=== PATIENT | male | born 1955 | race Caucasian/White ===

== ENCOUNTER 2020-05-05 11:07 | Outpatient (REF) | payer MEDICARE, SELFPAY ==
[2020-05-05 11:58] LABS: MANUAL DIFF FLAG NO
[2020-05-05 12:02] LABS: Basophils Absolute Auto 0.1 X10*3/uL (0.0-0.2); Eosinophils Absolute Auto 0.2 X10*3/uL (0.0-0.4); Eosinophils Percent Auto 2.6 % (0-4); Hematocrit 42.5 % (42-52); Hemoglobin 14.1 g/dl (14.0-18.0); Imm Gran Pct Auto 1.6 % (0.0-0.4); Lymphocytes Absolute Auto 1.3 X10*3/uL (1.2-4.9); Lymphocytes Percent Auto 20.9 % (20-40); Mean Corpuscular HGB Conc 33.2 g/dl (31.0-36.0); Mean Corpuscular Hemoglobin 30.5 pg (27.0-33.0); Mean Platelet Volume 9.7 fL (9.4-12.4); Monocytes Absolute Auto 0.6 X10*3/uL (0.1-1.2); Monocytes Percent Auto 10.3 % (2-11); Neutrophils Percent Auto 63.6 % (45-73); Platelet Count 164 X10*3/uL (160-400); Red Blood Count 4.62 X10*6/uL (4.60-5.80); Red Cell Distribution Width 14.3 % (11.0-16.0); White Blood Count 6.2 X10*3/uL (4.8-10.8)
[2020-05-05 12:28] LABS: Alanine Aminotransferase 22 U/L (0-40); Albumin Level 4.6 g/dL (3.5-5.0); Alkaline Phosphatase 63 U/L (39-117); Anion Gap 14 (12-20); Aspartate Amino Transferase 19 U/L (5-37); B Type Natriuretic Peptide 48 pg/mL (<100); Bilirubin Total 0.5 mg/dL (0.0-1.0); Blood Urea Nitrogen 42 mg/dL (9-16); Calcium 9.4 mg/dL (8.4-10.2); Carbon Dioxide 25 mmol/L (22-29); Chloride 105 mmol/L (96-108); Cholesterol 165 mg/dL; Estimated Glomerular Filt Rate 53; Glucose Fasting 124 mg/dL (60-99); HDL Cholesterol 24 mg/dL; LDL Cholesterol Calculated 96 mg/dl; Potassium 4.6 mmol/l (3.3-5.1); Sodium 139 mmol/L (135-145); Triglycerides 225 mg/dL
[2020-05-05 12:57] LABS: Folate 7.1 ng/mL (> or = 4.0); Vitamin B12 583 pg/mL (200-900)
[2020-05-05 12:58] LABS: Glucose Urine UA NEG (NEG); Leukocyte Esterase Urine NEG (NEG); Nitrite Urine NEG (NEG); PH 5.5 (5.0-8.0); Specific Gravity - Urine 1.025 (1.005-1.025); Urine Blood NEG (NEG); Urine Ketones NEG (NEG); Urine Protein NEG (NEG-TRACE)
[2020-05-05 13:02] LABS: Appearance Urine CLEAR; Color Urine YELLOW
[2020-05-05 13:19] LABS: Creatinine Urine 92.33 mg/dL
[2020-05-05 13:22] LABS: Estimated Average Glucose 108 mg/dL; Hemoglobin A1c % 5.4 %
== END 2020-05-05 11:08 | disposition home or self-care (01) ==
LOC: HO.LAB 11:07
PROVIDERS: Absent Provider Nurse Practitioner Gerontology; PCP Internal Medicine; Visit Provider Internal Medicine
DX: E11.22 Type 2 diabetes mellitus with diabetic chronic kidney disease (principal); I12.9 Hypertensive chronic kidney disease with stage 1 through stage 4 chronic kidney disease, or unspecified chronic kidney disease; N18.30 Chronic kidney disease, stage 3 unspecified; E78.2 Mixed hyperlipidemia; E83.52 Hypercalcemia; I50.9 Heart failure, unspecified; G61.81 Chronic inflammatory demyelinating polyneuritis; G62.9 Polyneuropathy, unspecified
CPT/HCPCS: 36415; 80053; 80061; 81003; 82043; 82607; 82746; 83036; 83880; 85025

== ENCOUNTER → 2020-05-09 11:17 | Outpatient (BNVA) | payer MEDICARE, SELFPAY | PROVIDERS: PCP Internal Medicine; Visit Provider Nurse Practitioner Gerontology | DX: E11.22 Type 2 diabetes mellitus with diabetic chronic kidney disease (principal); I12.9 Hypertensive chronic kidney disease with stage 1 through stage 4 chronic kidney disease, or unspecified chronic kidney disease; N18.30 Chronic kidney disease, stage 3 unspecified; E11.42 Type 2 diabetes mellitus with diabetic polyneuropathy; E78.1 Pure hyperglyceridemia | CPT/HCPCS: 82947; 99212 ==

== ENCOUNTER 2020-08-11 11:42 | Outpatient (REF) | payer MEDICARE, SELFPAY ==
[2020-08-11 12:38] LABS: MANUAL DIFF FLAG NO
[2020-08-11 12:46] LABS: Basophils Absolute Auto 0.1 X10*3/uL (0.0-0.2); Basophils Percent Auto 1.1 % (0-2); Eosinophils Absolute Auto 0.2 X10*3/uL (0.0-0.4); Eosinophils Percent Auto 2.7 % (0-4); Hematocrit 40.9 % (42-52); Hemoglobin 13.7 g/dl (14.0-18.0); Imm Gran Abs Auto 0.09 X10*3/uL (0.00-0.03); Imm Gran Pct Auto 1.4 % (0.0-0.4); Lymphocytes Absolute Auto 1.5 X10*3/uL (1.2-4.9); Lymphocytes Percent Auto 22.6 % (20-40); Mean Corpuscular HGB Conc 33.5 g/dl (31.0-36.0); Mean Corpuscular Hemoglobin 30.4 pg (27.0-33.0); Mean Corpuscular Volume 90.7 fL (80-98); Mean Platelet Volume 10.3 fL (9.4-12.4); Monocytes Absolute Auto 0.7 X10*3/uL (0.1-1.2); Neutrophils Absolute Auto 4.1 X10*3/uL (2.0-8.3); Neutrophils Percent Auto 61.2 % (45-73); Platelet Count 179 X10*3/uL (160-400); Red Blood Count 4.51 X10*6/uL (4.60-5.80); Red Cell Distribution Width 14.3 % (11.0-16.0); White Blood Count 6.6 X10*3/uL (4.8-10.8)
[2020-08-11 13:05] LABS: Glucose Urine UA NEG (NEG); Leukocyte Esterase Urine NEG (NEG); Nitrite Urine NEG (NEG); PH 5.5 (5.0-8.0); Specific Gravity - Urine 1.025 (1.005-1.025); Urine Blood NEG (NEG); Urine Ketones NEG (NEG); Urine Protein NEG (NEG-TRACE)
[2020-08-11 13:12] LABS: B Type Natriuretic Peptide 48 pg/mL (<100)
[2020-08-11 13:14] LABS: Appearance Urine CLEAR; Color Urine YELLOW
[2020-08-11 13:21] LABS: Alanine Aminotransferase 24 U/L (0-40); Albumin Level 4.6 g/dL (3.5-5.0); Alkaline Phosphatase 66 U/L (39-117); Anion Gap 12 (12-20); Aspartate Amino Transferase 22 U/L (5-37); Bilirubin Total 0.5 mg/dL (0.0-1.0); Blood Urea Nitrogen 46 mg/dL (9-16); Calcium 9.7 mg/dL (8.4-10.2); Carbon Dioxide 28 mmol/L (22-29); Chloride 103 mmol/L (96-108); Cholesterol 169 mg/dL; Estimated Glomerular Filt Rate 46; Glucose Fasting 105 mg/dL (60-99); HDL Cholesterol 29 mg/dL; LDL Cholesterol Calculated 116 mg/dl; Potassium 4.8 mmol/L (3.3-5.1); Sodium 138 mmol/L (135-145); Total Protein 7.1 g/dL (6.5-8.0); Triglycerides 124 mg/dL
[2020-08-11 13:43] LABS: Folate 6.1 ng/mL (> or = 4.0); Vitamin B12 705 pg/mL (200-900)
[2020-08-11 13:44] LABS: TSH reflex Free T4 2.68 uIU/mL (0.32-4.0)
[2020-08-11 14:02] LABS: Microalbum/Creatinine Ratio Ur 12.5 ug/mg cr
== END 2020-08-11 11:43 | disposition home or self-care (01) ==
LOC: HO.LAB 11:42
PROVIDERS: Absent Provider Nurse Practitioner Gerontology; PCP Internal Medicine; Visit Provider Internal Medicine
DX: E11.22 Type 2 diabetes mellitus with diabetic chronic kidney disease (principal); I13.0 Hypertensive heart and chronic kidney disease with heart failure and stage 1 through stage 4 chronic kidney disease, or unspecified chronic kidney disease; N18.30 Chronic kidney disease, stage 3 unspecified; I50.9 Heart failure, unspecified; G62.9 Polyneuropathy, unspecified; G61.81 Chronic inflammatory demyelinating polyneuritis; E78.2 Mixed hyperlipidemia; E83.52 Hypercalcemia; E66.3 Overweight
CPT/HCPCS: 36415; 80053; 80061; 81003; 82043; 82607; 82746; 83880; 84443; 85025

== ENCOUNTER 2020-11-04 11:18 | Outpatient (REF) | payer MEDICARE, SELFPAY ==
[2020-11-04 12:29] LABS: MANUAL DIFF FLAG NO
[2020-11-04 12:39] LABS: Basophils Absolute Auto 0.1 X10*3/uL (0.0-0.2); Basophils Percent Auto 1.1 % (0-2); Eosinophils Absolute Auto 0.2 X10*3/uL (0.0-0.4); Eosinophils Percent Auto 2.8 % (0-4); Hematocrit 42.1 % (42-52); Imm Gran Abs Auto 0.11 X10*3/uL (0.00-0.03); Imm Gran Pct Auto 1.7 % (0.0-0.4); Lymphocytes Absolute Auto 1.4 X10*3/uL (1.2-4.9); Lymphocytes Percent Auto 21.5 % (20-40); Mean Corpuscular HGB Conc 33.3 g/dl (31.0-36.0); Mean Corpuscular Hemoglobin 30.1 pg (27.0-33.0); Mean Corpuscular Volume 90.5 fL (80-98); Mean Platelet Volume 10.3 fL (9.4-12.4); Monocytes Absolute Auto 0.7 X10*3/uL (0.1-1.2); Monocytes Percent Auto 10.5 % (2-11); Neutrophils Percent Auto 62.4 % (45-73); Platelet Count 177 X10*3/uL (160-400); Red Blood Count 4.65 X10*6/uL (4.60-5.80); Red Cell Distribution Width 14.1 % (11.0-16.0); White Blood Count 6.4 X10*3/uL (4.8-10.8)
[2020-11-04 12:48] LABS: Glucose Urine UA NEG (NEG); Leukocyte Esterase Urine NEG (NEG); Nitrite Urine NEG (NEG); PH 5.5 (5.0-8.0); Specific Gravity - Urine 1.015 (1.005-1.025); Urine Blood NEG (NEG); Urine Ketones NEG (NEG); Urine Protein NEG (NEG-TRACE)
[2020-11-04 12:52] LABS: Appearance Urine CLEAR; Color Urine YELLOW
[2020-11-04 12:59] LABS: Estimated Average Glucose 91 mg/dL; Hemoglobin A1c % 4.8 %
[2020-11-04 13:19] LABS: Alanine Aminotransferase 25 U/L (0-40); Albumin Level 4.7 g/dL (3.5-5.0); Alkaline Phosphatase 51 U/L (39-117); Anion Gap 13 (12-20); Aspartate Amino Transferase 20 U/L (5-37); Bilirubin Total 0.7 mg/dL (0.0-1.0); Blood Urea Nitrogen 63 mg/dL (9-16); Calcium 10.2 mg/dL (8.4-10.2); Carbon Dioxide 25 mmol/L (22-29); Chloride 105 mmol/L (96-108); Cholesterol 151 mg/dL; Estimated Glomerular Filt Rate 49; Glucose Fasting 70 mg/dL (60-99); HDL Cholesterol 30 mg/dL; LDL Cholesterol Calculated 101 mg/dl; Potassium 4.4 mmol/L (3.3-5.1); Sodium 139 mmol/L (135-145); Total Protein 7.1 g/dL (6.5-8.0); Triglycerides 102 mg/dL
[2020-11-04 13:34] LABS: TSH reflex Free T4 2.21 uIU/mL (0.32-4.0); Vitamin D 25-OH Total 28.5 ng/mL (>30)
[2020-11-04 13:46] LABS: Digoxin 0.4 ng/mL (0.8-2.0)
[2020-11-04 13:54] LABS: Creatinine Urine 52.58 mg/dL; Microalbum/Creatinine Ratio Ur 11.4 ug/mg cr
[2020-11-04 13:55] LABS: Folate 7.7 ng/mL (> or = 4.0); Vitamin B12 652 pg/mL (200-900)
== END 2020-11-04 11:19 | disposition home or self-care (01) ==
LOC: HO.LAB 11:18
PROVIDERS: Absent Provider Nurse Practitioner Gerontology; PCP Internal Medicine; Visit Provider Internal Medicine
DX: I13.0 Hypertensive heart and chronic kidney disease with heart failure and stage 1 through stage 4 chronic kidney disease, or unspecified chronic kidney disease (principal); N18.31 Chronic kidney disease, stage 3a; I50.9 Heart failure, unspecified; E11.22 Type 2 diabetes mellitus with diabetic chronic kidney disease; E11.21 Type 2 diabetes mellitus with diabetic nephropathy; E66.3 Overweight; E78.2 Mixed hyperlipidemia; G62.9 Polyneuropathy, unspecified; E55.9 Vitamin D deficiency, unspecified; G61.81 Chronic inflammatory demyelinating polyneuritis; Z79.4 Long term (current) use of insulin
CPT/HCPCS: 36415; 80053; 80061; 80162; 81003; 82043; 82306; 82607; 82746; 83036; 84443; 85025

== ENCOUNTER → 2020-11-10 11:20 | Outpatient (BNVA) | payer MEDICARE, SELFPAY | PROVIDERS: PCP Internal Medicine; Visit Provider Nurse Practitioner Gerontology | DX: E11.649 Type 2 diabetes mellitus with hypoglycemia without coma (principal); E11.42 Type 2 diabetes mellitus with diabetic polyneuropathy; E11.21 Type 2 diabetes mellitus with diabetic nephropathy; E11.22 Type 2 diabetes mellitus with diabetic chronic kidney disease; I12.9 Hypertensive chronic kidney disease with stage 1 through stage 4 chronic kidney disease, or unspecified chronic kidney disease; N18.31 Chronic kidney disease, stage 3a; E66.3 Overweight; E78.5 Hyperlipidemia, unspecified; Z79.4 Long term (current) use of insulin | CPT/HCPCS: 82947; 99212 ==

== ENCOUNTER 2021-02-13 10:42 | Outpatient (REF) | payer MEDICARE, SELFPAY ==
[2021-02-13 11:54] LABS: MANUAL DIFF FLAG NO
[2021-02-13 12:00] LABS: Basophils Percent Auto 0.6 % (0-2); Eosinophils Absolute Auto 0.3 X10*3/uL (0.0-0.4); Eosinophils Percent Auto 4.1 % (0-4); Hemoglobin 14.6 g/dl (14.0-18.0); Imm Gran Abs Auto 0.14 X10*3/uL (0.00-0.03); Lymphocytes Absolute Auto 1.3 X10*3/uL (1.2-4.9); Lymphocytes Percent Auto 18.9 % (20-40); Mean Corpuscular Hemoglobin 30.8 pg (27.0-33.0); Mean Corpuscular Volume 90.7 fL (80-98); Mean Platelet Volume 10.3 fL (9.4-12.4); Monocytes Absolute Auto 0.8 X10*3/uL (0.1-1.2); Neutrophils Absolute Auto 4.4 X10*3/uL (2.0-8.3); Neutrophils Percent Auto 62.4 % (45-73); Platelet Count 174 X10*3/uL (160-400); Red Blood Count 4.74 X10*6/uL (4.60-5.80); Red Cell Distribution Width 14.3 % (11.0-16.0)
[2021-02-13 12:08] LABS: Estimated Average Glucose 91 mg/dL; Hemoglobin A1c % 4.8 %
[2021-02-13 12:21] LABS: Alanine Aminotransferase 28 U/L (0-40); Albumin Level 4.7 g/dL (3.5-5.0); Alkaline Phosphatase 45 U/L (39-117); Anion Gap 12 (12-20); Aspartate Amino Transferase 21 U/L (5-37); Bilirubin Total 0.8 mg/dL (0.0-1.0); Blood Urea Nitrogen 68 mg/dL (9-16); Calcium 10.2 mg/dL (8.4-10.2); Carbon Dioxide 24 mmol/L (22-29); Chloride 106 mmol/L (96-108); Cholesterol 158 mg/dL; Estimated Glomerular Filt Rate 49; Glucose Fasting 90 mg/dL (60-99); HDL Cholesterol 28 mg/dL; LDL Cholesterol Calculated 103 mg/dl; Potassium 4.4 mmol/L (3.3-5.1); Sodium 138 mmol/L (135-145); Total Protein 7.2 g/dL (6.5-8.0); Triglycerides 139 mg/dL
[2021-02-13 12:44] LABS: TSH reflex Free T4 2.27 uIU/mL (0.32-4.0); Vitamin D 25-OH Total 37.1 ng/mL (>30)
[2021-02-13 12:54] LABS: Appearance Urine CLEAR; Color Urine YELLOW; Glucose Urine UA NEG (NEG); Leukocyte Esterase Urine NEG (NEG); Nitrite Urine NEG (NEG); PH 5.5 (5.0-8.0); Urine Blood NEG (NEG); Urine Ketones NEG (NEG); Urine Protein NEG (NEG-TRACE)
[2021-02-13 13:04] LABS: Folate 14.4 ng/mL (> or = 4.0); Vitamin B12 833 pg/mL (200-900)
== END 2021-02-13 10:43 | disposition home or self-care (01) ==
LOC: HO.LAB 10:42
PROVIDERS: PCP Internal Medicine; Visit Provider Internal Medicine
DX: I10 Essential (primary) hypertension (principal); E55.9 Vitamin D deficiency, unspecified; E11.9 Type 2 diabetes mellitus without complications; E78.00 Pure hypercholesterolemia, unspecified; E53.8 Deficiency of other specified B group vitamins; E78.2 Mixed hyperlipidemia
CPT/HCPCS: 36415; 80053; 80061; 81003; 82306; 82607; 82746; 83036; 84443; 85025

== ENCOUNTER 2021-06-09 10:56 | Outpatient (REF) | payer MEDICARE, SELFPAY ==
[2021-06-09 11:21] LABS: MANUAL DIFF FLAG NO
[2021-06-09 12:14] LABS: Basophils Absolute Auto 0.1 X10*3/uL (0.0-0.2); Basophils Percent Auto 0.9 % (0-2); Eosinophils Absolute Auto 0.2 X10*3/uL (0.0-0.4); Eosinophils Percent Auto 3.1 % (0-4); Imm Gran Abs Auto 0.22 X10*3/uL (0.00-0.03); Imm Gran Pct Auto 3.4 % (0.0-0.4); Lymphocytes Absolute Auto 1.1 X10*3/uL (1.2-4.9); Lymphocytes Percent Auto 17.4 % (20-40); Mean Corpuscular HGB Conc 33.3 g/dl (31.0-36.0); Mean Platelet Volume 9.8 fL (9.4-12.4); Monocytes Absolute Auto 0.8 X10*3/uL (0.1-1.2); Monocytes Percent Auto 11.8 % (2-11); Neutrophils Absolute Auto 4.1 x10*3/uL (2.0-8.3); Neutrophils Percent Auto 63.4 % (45-73); Platelet Count 171 X10*3/uL (160-400); Red Blood Count 4.84 X10*6/uL (4.60-5.80); Red Cell Distribution Width 14.5 % (11.0-16.0); White Blood Count 6.5 X10*3/uL (4.8-10.8)
[2021-06-09 12:21] LABS: Estimated Average Glucose 100 mg/dL; Hemoglobin A1c % 5.1 %
[2021-06-09 12:45] LABS: Alanine Aminotransferase 29 U/L (0-40); Albumin Level 4.7 g/dL (3.5-5.0); Alkaline Phosphatase 51 U/L (39-117); Anion Gap 12 (12-20); Aspartate Amino Transferase 20 U/L (5-37); Bilirubin Total 0.6 mg/dL (0.0-1.0); Blood Urea Nitrogen 53 mg/dL (9-16); Calcium 10.1 mg/dL (8.4-10.2); Carbon Dioxide 24 mmol/L (22-29); Chloride 108 mmol/L (96-108); Cholesterol 190 mg/dL; Estimated Glomerular Filt Rate 47; Glucose Fasting 104 mg/dL (60-99); HDL Cholesterol 28 mg/dL; LDL Cholesterol Calculated 117 mg/dl; Potassium 4.8 mmol/L (3.3-5.1); Sodium 139 mmol/L (135-145); Total Protein 7.4 g/dL (6.5-8.0); Triglycerides 226 mg/dL
[2021-06-09 12:51] LABS: Microalbum/Creatinine Ratio Ur 46.8 ug/mg cr
[2021-06-09 12:55] LABS: Prostate Specific Antigen Scr 0.48 ng/mL (<0.05-4.0)
== END 2021-06-09 10:57 | disposition home or self-care (01) ==
LOC: HO.LAB 10:56
PROVIDERS: Nurse Practitioner Family; PCP Internal Medicine; Visit Provider Internal Medicine
DX: I10 Essential (primary) hypertension (principal); E11.22 Type 2 diabetes mellitus with diabetic chronic kidney disease; N18.30 Chronic kidney disease, stage 3 unspecified; E78.2 Mixed hyperlipidemia; E78.1 Pure hyperglyceridemia; E78.00 Pure hypercholesterolemia, unspecified; Z12.5 Encounter for screening for malignant neoplasm of prostate
CPT/HCPCS: 36415; 80053; 80061; 82043; 83036; 84153; 85025

== ENCOUNTER → 2021-06-25 11:23 | Outpatient (BNVA) | payer MEDICARE, SELFPAY | PROVIDERS: PCP Internal Medicine; Visit Provider Nurse Practitioner Gerontology | DX: E11.649 Type 2 diabetes mellitus with hypoglycemia without coma (principal); E11.21 Type 2 diabetes mellitus with diabetic nephropathy; E11.42 Type 2 diabetes mellitus with diabetic polyneuropathy; E11.22 Type 2 diabetes mellitus with diabetic chronic kidney disease; I12.9 Hypertensive chronic kidney disease with stage 1 through stage 4 chronic kidney disease, or unspecified chronic kidney disease; N18.31 Chronic kidney disease, stage 3a; E78.2 Mixed hyperlipidemia; E66.3 Overweight; Z79.4 Long term (current) use of insulin; Z68.25 Body mass index [BMI] 25.0-25.9, adult | CPT/HCPCS: 82947; 99212 ==

== ENCOUNTER 2021-09-03 11:13 | Outpatient (REF) | payer MEDICARE, SELFPAY ==
[2021-09-03 11:44] LABS: MANUAL DIFF FLAG NO
[2021-09-03 12:15] LABS: Basophils Absolute Auto 0.1 X10*3/uL (0.0-0.2); Basophils Percent Auto 0.9 % (0-2); Eosinophils Absolute Auto 0.2 X10*3/uL (0.0-0.4); Eosinophils Percent Auto 2.8 % (0-4); Hematocrit 44.2 % (42.0-52.0); Hemoglobin 14.8 g/dl (14.0-18.0); Imm Gran Abs Auto 0.11 X10*3/uL (0.00-0.03); Imm Gran Pct Auto 1.9 % (0.0-0.4); Lymphocytes Absolute Auto 1.1 X10*3/uL (1.2-4.9); Lymphocytes Percent Auto 20.2 % (20-40); Mean Corpuscular HGB Conc 33.5 g/dl (31.0-36.0); Mean Corpuscular Hemoglobin 30.6 pg (27.0-33.0); Mean Corpuscular Volume 91.5 fL (80.0-98.0); Mean Platelet Volume 9.3 fL (9.4-12.4); Monocytes Absolute Auto 0.6 X10*3/uL (0.1-1.2); Monocytes Percent Auto 11.3 % (2-11); Neutrophils Absolute Auto 3.6 x10*3/uL (2.0-8.3); Neutrophils Percent Auto 62.9 % (45-73); Platelet Count 155 X10*3/uL (160-400); Red Blood Count 4.83 X10*6/uL (4.60-5.80); Red Cell Distribution Width 14.5 % (11.0-16.0); White Blood Count 5.7 X10*3/uL (4.8-10.8)
[2021-09-03 12:21] LABS: Estimated Average Glucose 103 mg/dL; Hemoglobin A1c % 5.2 %
[2021-09-03 12:48] LABS: Digoxin 0.4 ng/mL (0.8-2.0)
[2021-09-03 12:49] LABS: Appearance Urine CLEAR; Color Urine YELLOW; Glucose Urine UA NEG (NEG); Leukocyte Esterase Urine NEG (NEG); Nitrite Urine NEG (NEG); PH 5.5 (5.0-8.0); Urine Blood NEG (NEG); Urine Ketones 5 MG/DL (NEG); Urine Protein NEG (NEG-TRACE)
[2021-09-03 12:53] LABS: Alanine Aminotransferase 29 U/L (0-40); Albumin Level 4.7 g/dL (3.5-5.0); Alkaline Phosphatase 53 U/L (39-117); Anion Gap 11 (12-20); Aspartate Amino Transferase 22 U/L (5-37); Bilirubin Total 0.7 mg/dL (0.0-1.0); Blood Urea Nitrogen 52 mg/dL (9-16); Calcium 9.8 mg/dL (8.4-10.2); Carbon Dioxide 24 mmol/L (22-29); Chloride 105 mmol/L (96-108); Cholesterol 168 mg/dL; Estimated Glomerular Filt Rate 48; Glucose Fasting 113 mg/dL (60-99); HDL Cholesterol 24 mg/dL; LDL Cholesterol Calculated 82 mg/dl; Potassium 4.4 mmol/L (3.3-5.1); Sodium 136 mmol/L (135-145); Total Protein 7.2 g/dL (6.5-8.0); Triglycerides 314 mg/dL
[2021-09-03 13:02] LABS: TSH reflex Free T4 2.95 uIU/mL (0.32-4.0); Vitamin D 25-OH Total 30.4 ng/mL (>30)
[2021-09-03 14:09] LABS: Creatinine Urine 58.34 mg/dL; Microalbum/Creatinine Ratio Ur 30.8 ug/mg cr
== END 2021-09-03 11:14 | disposition home or self-care (01) ==
LOC: HO.LAB 11:13
PROVIDERS: PCP Internal Medicine; Visit Provider Internal Medicine
DX: I10 Essential (primary) hypertension (principal); I50.9 Heart failure, unspecified; E11.9 Type 2 diabetes mellitus without complications; E78.00 Pure hypercholesterolemia, unspecified; E55.9 Vitamin D deficiency, unspecified
CPT/HCPCS: 36415; 80053; 80061; 80162; 81003; 82043; 82306; 83036; 84443; 85025

== ENCOUNTER 2021-12-02 11:28 | Outpatient (REF) | payer MEDICARE, SELFPAY ==
[2021-12-02 11:59] LABS: MANUAL DIFF FLAG NO
[2021-12-02 13:15] LABS: Basophils Absolute Auto 0.1 X10*3/uL (0.0-0.2); Basophils Percent Auto 0.8 % (0-2); Eosinophils Absolute Auto 0.2 X10*3/uL (0.0-0.4); Eosinophils Percent Auto 2.3 % (0-4); Hematocrit 39.2 % (42.0-52.0); Hemoglobin 13.2 g/dl (14.0-18.0); Imm Gran Abs Auto 0.11 X10*3/uL (0.00-0.03); Imm Gran Pct Auto 1.7 % (0.0-0.4); Lymphocytes Absolute Auto 1.3 X10*3/uL (1.2-4.9); Lymphocytes Percent Auto 19.4 % (20-40); Mean Corpuscular HGB Conc 33.7 g/dl (31.0-36.0); Mean Corpuscular Hemoglobin 30.3 pg (27.0-33.0); Mean Corpuscular Volume 89.9 fL (80.0-98.0); Mean Platelet Volume 9.8 fL (9.4-12.4); Monocytes Absolute Auto 0.7 X10*3/uL (0.1-1.2); Neutrophils Absolute Auto 4.2 x10*3/uL (2.0-8.3); Neutrophils Percent Auto 64.8 % (45-73); Platelet Count 156 X10*3/uL (160-400); Red Blood Count 4.36 X10*6/uL (4.60-5.80); Red Cell Distribution Width 14.3 % (11.0-16.0); White Blood Count 6.4 X10*3/uL (4.8-10.8)
[2021-12-02 13:40] LABS: Estimated Average Glucose 88 mg/dL; Hemoglobin A1c % 4.7 %
[2021-12-02 13:55] LABS: Appearance Urine CLEAR; Color Urine YELLOW; Glucose Urine UA NEG (NEG); Leukocyte Esterase Urine NEG (NEG); Nitrite Urine NEG (NEG); PH 5.5 (5.0-8.0); Urine Blood NEG (NEG); Urine Ketones NEG (NEG); Urine Protein NEG (NEG-TRACE)
[2021-12-02 13:57] LABS: Vitamin D 25-OH Total 31.4 ng/mL (>30)
[2021-12-02 13:59] LABS: Alanine Aminotransferase 22 U/L (0-40); Albumin Level 4.6 g/dL (3.5-5.0); Alkaline Phosphatase 45 U/L (39-117); Anion Gap 11 (12-20); Aspartate Amino Transferase 18 U/L (5-37); Bilirubin Total 0.8 mg/dL (0.0-1.0); Blood Urea Nitrogen 67 mg/dL (9-16); Calcium 9.2 mg/dL (8.4-10.2); Carbon Dioxide 23 mmol/L (22-29); Chloride 105 mmol/L (96-108); Cholesterol 141 mg/dL; Estimated Glomerular Filt Rate 43; Glucose Fasting 94 mg/dL (60-99); HDL Cholesterol 23 mg/dL; LDL Cholesterol Calculated 74 mg/dl; Potassium 4.3 mmol/L (3.3-5.1); Sodium 135 mmol/L (135-145); Triglycerides 222 mg/dL
[2021-12-02 14:28] LABS: Creatinine Urine 72.94 mg/dL; Microalbum/Creatinine Ratio Ur 12.3 ug/mg cr
== END 2021-12-02 11:29 | disposition home or self-care (01) ==
LOC: HO.LAB 11:28
PROVIDERS: PCP Internal Medicine; Visit Provider Internal Medicine
DX: E11.9 Type 2 diabetes mellitus without complications (principal); E55.9 Vitamin D deficiency, unspecified; E78.00 Pure hypercholesterolemia, unspecified; I10 Essential (primary) hypertension
CPT/HCPCS: 36415; 80053; 80061; 81003; 82043; 82306; 83036; 84443; 85025

== ENCOUNTER 2022-04-12 12:15 | Outpatient (REF) | payer MEDICARE, SELFPAY ==
[2022-04-12 12:34] LABS: MANUAL DIFF FLAG NO
[2022-04-12 13:15] LABS: Basophils Absolute Auto 0.1 X10*3/uL (0.0-0.2); Basophils Percent Auto 0.9 % (0-2); Eosinophils Absolute Auto 0.1 X10*3/uL (0.0-0.4); Eosinophils Percent Auto 1.7 % (0-4); Hematocrit 38.3 % (42.0-52.0); Hemoglobin 12.7 g/dl (14.0-18.0); Imm Gran Abs Auto 0.16 X10*3/uL (0.00-0.03); Imm Gran Pct Auto 2.4 % (0.0-0.4); Lymphocytes Absolute Auto 1.1 X10*3/uL (1.2-4.9); Lymphocytes Percent Auto 16.4 % (20-40); Mean Corpuscular HGB Conc 33.2 g/dl (31.0-36.0); Mean Corpuscular Hemoglobin 30.1 pg (27.0-33.0); Mean Corpuscular Volume 90.8 fL (80.0-98.0); Mean Platelet Volume 9.5 fL (9.4-12.4); Monocytes Absolute Auto 0.6 X10*3/uL (0.1-1.2); Neutrophils Absolute Auto 4.6 x10*3/uL (2.0-8.3); Neutrophils Percent Auto 69.6 % (45-73); Platelet Count 223 X10*3/uL (160-400); Red Blood Count 4.22 X10*6/uL (4.60-5.80); Red Cell Distribution Width 14.1 % (11.0-16.0); White Blood Count 6.7 X10*3/uL (4.8-10.8)
[2022-04-12 13:27] LABS: Appearance Urine Clear; Color Urine Yellow; Glucose Urine UA Negative (Negative); Leukocyte Esterase Urine Negative (Negative); Nitrite Urine Negative (Negative); PH 5.5 (5.0-9.0); Urine Blood Negative (Negative); Urine Ketones Negative (Negative); Urine Protein Negative (Neg-Trace)
[2022-04-12 13:46] LABS: Estimated Average Glucose 91 mg/dL; Hemoglobin A1c % 4.8 %
[2022-04-12 13:51] LABS: Alanine Aminotransferase 23 U/L (0-40); Albumin Level 4.4 g/dL (3.5-5.0); Alkaline Phosphatase 50 U/L (39-117); Anion Gap 15 (12-20); Aspartate Amino Transferase 19 U/L (5-37); Bilirubin Total 0.9 mg/dL (0.0-1.0); Blood Urea Nitrogen 40 mg/dL (9-16); Calcium 9.3 mg/dL (8.4-10.2); Carbon Dioxide 24 mmol/L (22-29); Chloride 107 mmol/L (96-108); Cholesterol 159 mg/dL; Estimated Glomerular Filt Rate 56; Glucose Fasting 97 mg/dL (60-99); HDL Cholesterol 30 mg/dL; LDL Cholesterol Calculated 111 mg/dl; Sodium 141 mmol/L (135-145); Total Protein 6.7 g/dL (6.5-8.0); Triglycerides 90 mg/dL
[2022-04-12 13:57] LABS: Creatinine Urine 80.32 mg/dL; Microalbum/Creatinine Ratio Ur 12.4 ug/mg cr
[2022-04-12 14:08] LABS: TSH reflex Free T4 1.26 uIU/mL (0.32-4.0)
[2022-04-12 14:18] LABS: Folate 5.7 ng/mL (> or = 4.0); Vitamin B12 601 pg/mL (200-900)
[2022-04-16 15:56] LABS: Testosterone, Free 72.5 pg/mL (35.0-155.0); Testosterone, Total 625 ng/dL (250-1100)
== END 2022-04-12 12:16 | disposition home or self-care (01) ==
LOC: HO.LAB 12:15
PROVIDERS: PCP Internal Medicine; Visit Provider Internal Medicine
DX: I10 Essential (primary) hypertension (principal); E78.00 Pure hypercholesterolemia, unspecified; E55.9 Vitamin D deficiency, unspecified; E53.8 Deficiency of other specified B group vitamins; E11.42 Type 2 diabetes mellitus with diabetic polyneuropathy; R53.83 Other fatigue; Z79.4 Long term (current) use of insulin
CPT/HCPCS: 36415; 80053; 80061; 81003; 82043; 82306; 82607; 82746; 83036; 84402; 84403; 84443; 85025

== ENCOUNTER 2022-08-04 12:43 | Outpatient (REF) | payer MEDICARE, SELFPAY ==
[2022-08-04 13:10] LABS: MANUAL DIFF FLAG NO
[2022-08-04 14:32] LABS: Appearance Urine Clear; Color Urine Yellow; Glucose Urine UA Negative (Negative); Leukocyte Esterase Urine Negative (Negative); Nitrite Urine Negative (Negative); PH 6.5 (5.0-9.0); Urine Blood Negative (Negative); Urine Ketones Negative (Negative); Urine Protein Negative (Neg-Trace)
[2022-08-04 14:57] LABS: Basophils Absolute Auto 0.1 X10*3/uL (0.0-0.2); Basophils Percent Auto 0.9 % (0-2); Eosinophils Absolute Auto 0.2 X10*3/uL (0.0-0.4); Hematocrit 40.3 % (42.0-52.0); Hemoglobin 13.7 g/dl (14.0-18.0); Imm Gran Abs Auto 0.06 X10*3/uL (0.00-0.03); Imm Gran Pct Auto 1.1 % (0.0-0.4); Lymphocytes Absolute Auto 1.4 X10*3/uL (1.2-4.9); Mean Corpuscular Hemoglobin 31.1 pg (27.0-33.0); Mean Corpuscular Volume 91.4 fL (80.0-98.0); Mean Platelet Volume 10.2 fL (9.4-12.4); Monocytes Absolute Auto 0.6 X10*3/uL (0.1-1.2); Monocytes Percent Auto 10.9 % (2-11); Neutrophils Absolute Auto 3.4 x10*3/uL (2.0-8.3); Neutrophils Percent Auto 60.1 % (45-73); Platelet Count 164 X10*3/uL (160-400); Red Blood Count 4.41 X10*6/uL (4.60-5.80); Red Cell Distribution Width 14.3 % (11.0-16.0); White Blood Count 5.7 X10*3/uL (4.8-10.8)
[2022-08-04 15:03] LABS: Estimated Average Glucose 94 mg/dL; Hemoglobin A1c % 4.9 %
[2022-08-04 15:35] LABS: Troponin-I High Sensitivity 29.2 ng/L (<3.5-35.0)
[2022-08-04 16:30] LABS: Alanine Aminotransferase 26 U/L (0-40); Albumin Level 4.7 g/dL (3.5-5.0); Alkaline Phosphatase 41 U/L (39-117); Anion Gap 14 (12-20); Aspartate Amino Transferase 24 U/L (5-37); Bilirubin Total 1.1 mg/dL (0.0-1.0); Blood Urea Nitrogen 53 mg/dL (9-16); Calcium 9.8 mg/dL (8.4-10.2); Carbon Dioxide 27 mmol/L (22-29); Chloride 105 mmol/L (96-108); Cholesterol 177 mg/dL; Estimated Glomerular Filt Rate 48; Glucose Fasting 83 mg/dL (60-99); HDL Cholesterol 32 mg/dL; LDL Cholesterol Calculated 127 mg/dl; Potassium 4.4 mmol/L (3.3-5.1); Sodium 142 mmol/L (135-145); Triglycerides 90 mg/dL
[2022-08-04 16:33] LABS: Creatinine Urine 29.34 mg/dL; Microalbum/Creatinine Ratio Ur 20.4 ug/mg cr
[2022-08-04 16:46] LABS: TSH reflex Free T4 2.42 uIU/mL (0.32-4.0); Vitamin D 25-OH Total 33.9 ng/mL (>30)
[2022-08-04 20:19] LABS: Digoxin 0.7 ng/mL (0.8-2.0)
== END 2022-08-04 12:44 | disposition home or self-care (01) ==
LOC: HO.LAB 12:43
PROVIDERS: PCP Internal Medicine; Visit Provider Internal Medicine
DX: I11.0 Hypertensive heart disease with heart failure (principal); I50.20 Unspecified systolic (congestive) heart failure; E78.00 Pure hypercholesterolemia, unspecified; E11.9 Type 2 diabetes mellitus without complications; R30.0 Dysuria; E55.9 Vitamin D deficiency, unspecified; Z79.899 Other long term (current) drug therapy
CPT/HCPCS: 36415; 80053; 80061; 80162; 81003; 82043; 82306; 83036; 84443; 84484; 85025

== ENCOUNTER 2022-11-30 12:38 | Outpatient (RCR) | payer MEDICARE, SELFPAY ==
--- NOTE | ~2022-11-30 | XR_ITS ---
EXAMINATION: XR HUMERUS, LEFT CLINICAL INFORMATION: Nonhealing wound. COMPARISON: None available. TECHNIQUE: AP and lateral views of the left humerus. FINDINGS: There is no evidence of acute fracture or dislocation of the left humerus. There are a few regions of diminished density present in the mid aspect which may be related to osteopenia versus lytic lesions such as multiple myeloma. No cortical destruction is identified. No periosteal new bone formation is seen. No elbow effusion is noted. There is a small spur site of insertion of the triceps tendon. There is calcific tendinitis of the left shoulder. No gas or radiopaque foreign body identified within the soft tissues. XR/XR humerus LT IMPRESSION: No evidence of acute fracture or dislocation of the left humerus. Question a few lytic lesions within the mid humerus without cortical disruption.
== END 2022-11-30 16:00 | disposition home or self-care (01) ==
LOC: HO.WCC 12:38
PROVIDERS: PCP Internal Medicine; Visit Provider Physician Assistant
DX: E11.622 Type 2 diabetes mellitus with other skin ulcer (principal); L98.499 Non-pressure chronic ulcer of skin of other sites with unspecified severity; E11.40 Type 2 diabetes mellitus with diabetic neuropathy, unspecified; E11.22 Type 2 diabetes mellitus with diabetic chronic kidney disease; I13.0 Hypertensive heart and chronic kidney disease with heart failure and stage 1 through stage 4 chronic kidney disease, or unspecified chronic kidney disease; N18.30 Chronic kidney disease, stage 3 unspecified; I50.9 Heart failure, unspecified; G61.81 Chronic inflammatory demyelinating polyneuritis; Z79.4 Long term (current) use of insulin; Z79.84 Long term (current) use of oral hypoglycemic drugs
CPT/HCPCS: 73060; 99212

== ENCOUNTER 2022-12-23 12:46 | Outpatient (REF) | payer MEDICARE, SELFPAY ==
[2022-12-23 13:11] LABS: MANUAL DIFF FLAG NO
[2022-12-23 14:24] LABS: Basophils Percent Auto 0.6 % (0-2); Eosinophils Absolute Auto 0.1 X10*3/uL (0.0-0.4); Eosinophils Percent Auto 1.9 % (0-4); Hematocrit 35.5 % (42.0-52.0); Hemoglobin 11.8 g/dl (14.0-18.0); Imm Gran Abs Auto 0.08 X10*3/uL (0.00-0.03); Imm Gran Pct Auto 1.2 % (0.0-0.4); Lymphocytes Percent Auto 14.3 % (20-40); Mean Corpuscular HGB Conc 33.2 g/dl (31.0-36.0); Mean Corpuscular Hemoglobin 30.3 pg (27.0-33.0); Mean Platelet Volume 9.2 fL (9.4-12.4); Monocytes Absolute Auto 0.7 X10*3/uL (0.1-1.2); Monocytes Percent Auto 10.4 % (2-11); Neutrophils Absolute Auto 4.8 x10*3/uL (2.0-8.3); Neutrophils Percent Auto 71.6 % (45-73); Platelet Count 247 X10*3/uL (160-400); Red Cell Distribution Width 13.5 % (11.0-16.0); White Blood Count 6.7 X10*3/uL (4.8-10.8)
[2022-12-23 14:35] LABS: Appearance Urine Clear; Color Urine Yellow; Glucose Urine UA Negative (Negative); Leukocyte Esterase Urine Negative (Negative); Nitrite Urine Negative (Negative); PH 5.5 (5.0-9.0); Urine Blood Negative (Negative); Urine Ketones Negative (Negative); Urine Protein Negative (Neg-Trace)
[2022-12-23 14:51] LABS: Estimated Average Glucose 85 mg/dL; Hemoglobin A1c % 4.6 %
[2022-12-23 15:14] LABS: Alanine Aminotransferase 22 U/L (0-40); Albumin Level 4.1 g/dL (3.5-5.0); Alkaline Phosphatase 44 U/L (39-117); Anion Gap 12 (12-20); Aspartate Amino Transferase 21 U/L (5-37); Bilirubin Total 0.8 mg/dL (0.0-1.0); Blood Urea Nitrogen 51 mg/dL (9-16); Calcium 10.3 mg/dL (8.4-10.2); Carbon Dioxide 26 mmol/L (22-29); Chloride 107 mmol/L (96-108); Cholesterol 106 mg/dL; Estimated Glomerular Filt Rate 51; Glucose Fasting 92 mg/dL (60-99); HDL Cholesterol 27 mg/dL; LDL Cholesterol Calculated 66 mg/dl; Potassium 4.4 mmol/L (3.3-5.1); Sodium 141 mmol/L (135-145); Total Protein 6.9 g/dL (6.5-8.0); Triglycerides 67 mg/dL
[2022-12-23 15:40] LABS: TSH reflex Free T4 1.65 uIU/mL (0.32-4.0); Vitamin D 25-OH Total 51.7 ng/mL (>30)
[2022-12-23 16:31] LABS: Folate > 20.0 ng/mL (> or = 4.0); Vitamin B12 1789 pg/mL (200-900)
[2022-12-23 16:34] LABS: Creatinine Urine 77.42 mg/dL; Microalbum/Creatinine Ratio Ur 14.2 ug/mg cr
[2022-12-27 19:23] LABS: Homocysteine 25.6 umol/L (<11.4)
== END 2022-12-23 12:47 | disposition home or self-care (01) ==
LOC: HO.LAB 12:46
PROVIDERS: PCP Internal Medicine; Visit Provider Internal Medicine
DX: E11.9 Type 2 diabetes mellitus without complications (principal); E53.8 Deficiency of other specified B group vitamins; R30.0 Dysuria; E78.00 Pure hypercholesterolemia, unspecified; I10 Essential (primary) hypertension; E72.11 Homocystinuria; E55.9 Vitamin D deficiency, unspecified
CPT/HCPCS: 36415; 80053; 80061; 81003; 82043; 82306; 82607; 82746; 83036; 83090; 84443; 85025

== ENCOUNTER 2022-12-31 12:08 | Outpatient (AMB) | payer MEDICARE, SELFPAY ==
[2022-12-31 12:29] VITALS: BP 114/60; PULSE 67; O2SAT 98; BMI 24.7
--- NOTE | 2022-12-31 12:29 | A.OFFPC_ITS ---
Vital Signs 12/31/22 12:29 Height 5 ft 8.5 in Weight 165 lb 2 oz BMI 24.7 BP 114/60 Blood Pressure Location Lt brachial Position Sitting Pulse 67 Pulse Source Pulse Oximeter Pulse Oximetry (%) 98 Oxygen Delivery Method Room Air Intake Visit Reasons: 4mt f/u [employer] Required: No Accompanied by: Self / Same As Patient Allergies atenolol [ATENOLOL] Allergy (Severe, Verified 12/31/22 12:42) ANAPHYLAXIS, anaphya=laxis pollen Allergy (Unknown, Uncoded 12/31/22 12:42) rhinitis Medication List - Last Reconciled 12/31/22 by Max Alonso MD amlodipine 10 mg PO DAILY 30 days atorvastatin 10 mg PO BEDTIME 30 days blood sugar diagnostic ([employer] Precision Marcelo Strips) As directed carvedilol 12.5 mg PO BID clonazepam 0.5 mg PO BID PRN 30 days digoxin 125 mcg PO DAILY fenofibrate nanocrystallized 145 mg PO DAILY flash glucose scanning reader As directed flash glucose sensor ([employer] Sherice 14 Day Sensor kit) As directed fluticasone propionate 50 mcg/actuation 1 spray intranasal DAILY PRN hydrochlorothiazide 50 mg (2 x 25 mg) PO DAILY insulin aspart U-100 (Novolog FlexPen U-100 Insulin aspart) 3 - 4 units subcut TID lancets As directed losartan 100 mg PO DAILY pen needle, diabetic (BD Alba 2nd Gen Pen Needle) 1 ea miscellaneous QID potassium chloride ER 20 mEq PO DAILY prednisone 1 mg PO DAILY sitagliptin phosphate (Januvia) 100 mg PO DAILY Toujeo Max U-300 SoloStar (insulin glargine U-300 conc) 18 units (0.06 mL) subcut BEDTIME NS Tobacco use date assessed: 12/31/22 Fall risk assessment: 1 Fall in past year Last assessed Fall Risk: 12/31/22 Dental Screening Dental Screen Date: 12/31/22 Did you have a dental visit in the last 12 months?: No Did you have a dental problem in the last 6 months where you did not have access to dental care?: No Was dental information given to patient?: Patient has dentist HPI 4mth f/u HPI Details Patient comes in today for his follow up visit States that he feels okay and that the wound on his left upper arm is finally healed up completely Was seen by the wound clinic a few weeks ago but states that his arm wound was almost healed up by then and he was only seen by the wound clinic once and his wound has healed up since He denies any headaches or dizziness; denies any fever Denies any chest pains, no SOB No nausea/vomiting, no abdominal pain No change in bowel habits noted States that he has noticed some increased variability in his morning and evening blood pressure readings lately although he rports no associated symptoms with these readings - is wondering if this is anything he should be concerned about Adds that he recently noticed a small dark skin lesion on the right side of his nose and is wondering if this needs to be checked out Had his follow up labs done last week - to discuss his results [facility] Medical History Allergic rhinitis Anxiety Benign essential hypertension CHF (congestive heart failure) Chronic congestive heart failure Chronic inflammatory demyelinating polyneuritis Chronic kidney disease, stage 3 Essential hypertension GERD (gastroesophageal reflux disease) Hypercalcemia Hypertriglyceridemia Mixed hyperlipidemia Neuropathy Overweight (BMI 25.0-29.9) Prostate cancer screening RLS (restless legs syndrome) 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 Surgical History History of bronchoscopy Hx of bilateral inguinal hernia repair Hx of cardiac catheterization Hx of hand surgery Hx of removal of cyst Hx of tonsillectomy Family History Father Smoker Diabetes Hypertension Mother Smoker Asthma Emphysema, unspecified Social History Household Members Other:: Sister Housing: House Alcohol intake: never Patient Tobacco Use Status: Never used Tobacco e-Cigarette/Vaping Use: Never Used Second Hand Smoke Exposure: Yes service: No Current occupational status: retired Cognitive needs: No Hearing needs: No Vision needs: Yes Questionnaire PHQ-9 Over the last 2 weeks, how often have you been bothered by any of the following problems? 1. Little interest or pleasure in doing things: not at all 2. Feeling down, depressed, or hopeless: not at all 3. Trouble falling or staying asleep, or sleeping too much: not at all 4. Feeling tired or having little energy: not at all 5. Poor appetite or overeating: not at all 6. Feeling bad about yourself - or that you are a failure or have let yourself or your family down: not at all 7. Trouble concentrating on things, such as reading the newspaper or watching television: not at all 8. Moving or speaking so slowly that other people could have noticed. Or the opposite - being so fidgety or restless that you have been moving around a lot more than usual: not at all 9. Thoughts that you would be better off or of hurting yourself in some way: not at all Total score: 0 Depression Screening Interpretation: Negative 11002 - PHQ-9 Billing: Yes Source: Developed by Drs. Hans Correa, Carley Davalos, Leonel Jackson and colleagues, with an educational reynold from [employer]. Thrive Questionnaire Date Thrive assessed: 12/31/22 I am a: Patient What is your living situation today?: I have a steady place to live Within the past 12 months, did the food you bought not last and you didn't have the money to get more?: Never true Within the past 12 months, did you worry whether your food would run out before you got money to buy more?: Never true Do you have trouble paying for medicines?: No Do you have trouble getting transportation to medical appointments?: No Do you have trouble paying your heating and electricity bill?: No Do you have trouble taking care of your child, family member or friend?: No Do you have trouble with day-to-day activities such as bathing, preparing meals, shopping, managing finances, etc.?: No Are you currently unemployed and looking for a job?: No Are you interested in more education?: No Please select the resources that you would like help with: None Currently or been in a relationship where the following occur: no concerns reported AUDIT C Alcohol Use Questionnaire (AUDIT-C) 1. How often do you have a drink containing alcohol?: Never 3. How often do you have six or more drinks on one occasion?: Never Total Score: 0 Score Reviewed/Action Taken: Yes EDILIA-7 AMB Questionnaire EDILIA-7 Date EDILIA - 7 assessed: 12/31/22 Feeling nervous, anxious, or on edge: 0 = Not at all Not being able to stop or control worryin = Not at all Worrying too much about different things: 0 = Not at all Trouble relaxin = Not at all Being so restless that it is hard to sit still: 0 = Not at all Becoming easily annoyed or irritable: 0 = Not at all Feeling afraid as if something awful might happen: 0 = Not at all Total EDILIA-7 score (0-4 normal; 5-9 mild; 10-14 moderate; 15-21 severe): 0 Source: Developed by Drs. Hans Correa, Carley Davalos, Leonel Jackson and colleagues, with an educational reynold from [employer]. Review of Systems Const Denies fatigue, Denies fever(s) and Denies headache(s) ENT Denies dysphagia, Denies dizziness, Denies headache(s), Denies sinus pain and Denies sore throat Card Denies chest pain, Denies palpitations and Denies dyspnea Resp Denies cough and Denies dyspnea GI Denies abdominal pain, Denies constipation, Denies dysphagia, Denies heartburn, Denies diarrhea, Denies nausea and Denies vomiting Denies difficulty urinating, Denies dysuria, Denies nocturia and Denies urinary frequency Skin/Breast Details: (+) small dark and slightly raised skin lesion on the right side of his nose Neuro Denies dizziness and Denies headache(s) Endo Denies fatigue and Denies palpitations Physical exam (Primary Care) Vital Signs: Last Vital Signs Pulse 67 12/31/22 12:29 BP 114/60 12/31/22 12:29 Pulse Ox 98 12/31/22 12:29 Oxygen Delivery Method Room Air 12/31/22 12:29 BMI result Body Mass Index 24.7 Tobacco/Smoking Status: Tobacco use Status Tobacco use date assessed 12/31/22 12/31/22 12:35 Patient Tobacco Use Status Never used Tobacco 12/31/22 12:35 e-Cigarette/Vaping Use Never Used 12/31/22 12:35 PHQ-9: PHQ-9 Score PHQ-9: Total score 0 12/31/22 14:23 Depression Screening Interpretation: Negative Thrive Assessment: Date of Thrive Assessment Date Thrive assessed 12/31/22 12/31/22 12:35 Currently or been in a relationship where the following occur: no concerns reported Const General: no acute distress and alert HENMT Ears: TM's normal bilaterally and EAC's normal Throat: Yes posterior oropharynx normal and Yes tonsils normal (no TP congestion noted) Neck Neck: Yes no lymphadenopathy and Yes supple Resp Auscultation: clear to auscultation bilaterally, no rales and no wheezes Cardio Rate: regular rate Rhythm: regular rhythm Heart sounds: Murmur heart sound present systolic early, soft, II/ and at the right sternal border (upper sternal border) GI Palpation (GI): Soft to palpation and nontender Auscultation: normal bowel sounds Skin Other: (+) small and slightly raised dark skin lesion on the right side of the nose Extrem General: Yes no clubbing, cyanosis or edema Results Reviewed Results Reviewed: Laboratory Tests 12/23/22 12/23/22 12/23/22 13:00 13:00 13:09 WBC 6.7 Hgb 11.8 L Hct 35.5 L Plt Count 247 D Sodium Potassium Creatinine Estimated GFR Fasting Glucose Hemoglobin A1c % Calcium AST ALT Triglycerides Cholesterol LDL Cholesterol, Calc HDL Cholesterol Vitamin B12 25-OH Vitamin D Total Homocysteine TSH Ur Specific [place] 1.020 Urine Protein Negative Urine Glucose (UA) Negative Urine Blood Negative Microalb/Creat Ratio 14.2 12/23/22 12/23/22 12/23/22 13:09 13:09 13:09 WBC Hgb Hct Plt Count Sodium 141 Potassium 4.4 Creatinine 1.38 Estimated GFR 51 Fasting Glucose 92 Hemoglobin A1c % 4.6 Calcium 10.3 H AST 21 ALT 22 Triglycerides 67 Cholesterol 106 LDL Cholesterol, Calc 66 HDL Cholesterol 27 Vitamin B12 1789 H 25-OH Vitamin D Total 51.7 Homocysteine TSH 1.65 Ur Specific [place] Urine Protein Urine Glucose (UA) Urine Blood Microalb/Creat Ratio 12/23/22 13:09 WBC Hgb Hct Plt Count Sodium Potassium Creatinine Estimated GFR Fasting Glucose Hemoglobin A1c % Calcium AST ALT Triglycerides Cholesterol LDL Cholesterol, Calc HDL Cholesterol Vitamin B12 25-OH Vitamin D Total Homocysteine 25.6 H TSH Ur Specific [place] Urine Protein Urine Glucose (UA) Urine Blood Microalb/Creat Ratio Assessment and Plan Assessment & Plan (1) Type 2 diabetes mellitus with diabetic polyneuropathy: Code(s): E11.42 - Type 2 diabetes mellitus with diabetic polyneuropathy 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 Qualified Code(s): E11.42 - Type 2 diabetes mellitus with diabetic polyneuropathy; Z79.4 - nursing home (current) use of insulin Plan: HgbA1c was normal at 4.6% on his labs done last week (was at 4.9% a few months ago) - goal is <7.0% Reinforced diabetic diet Continue Toujeo Solostar pen 12 units once a day and NovoLog FlexPen at 3-4 units 3 times a day with meals per sliding scale We had him try cutting his Januvia in half to 50 mg QD previously BUT he went back to 100 mg QD when his blood sugar readings started going up shortly Was seeing endocrinology in the past but his prescribing manager digital ad operations recently left the practice and he is now seeing us for his diabetes management Advised that his HgbA1c is still quite low at 4.6% and we can try cutting his Januvia in half to see it that will help address this but patient prefers to just stay on the same dose of his meds for now (2) Chronic kidney disease, stage 3: Code(s): N18.30 - Chronic kidney disease, stage 3 unspecified Qualifiers: Chronic kidney disease stage 3 subtype: stage 3a (GFR 45-59) Qualified Code(s): N18.31 - Chronic kidney disease, stage 3a Plan: Stable - will continue to monitor GFR and renal function regularly (3) Benign essential hypertension: Code(s): I10 - Essential (primary) hypertension Plan: Reinforced low sodium diet - goal is systolic BP of at least 130 to 140 mm or less Continue Losartan 100 mg QD, Amlodipine 10 mg QD and Hydrochlorothiazide 25 mg 2 tablets QD Patient also takes Potassium Chloride ER tablets 20 mEq once a day as he is on diuretics (4) Chronic congestive heart failure: Code(s): I50.9 - Heart failure, unspecified Qualifiers: Heart failure type: unspecified Qualified Code(s): I50.9 - Heart failure, unspecified Plan: Compensated/asymptomatic - reinforced fluid restriction Echocardiogram done in May 2019 showed normal LV systolic function and visually estimated EF was between 60-65%; basal and mid inferior segments are hypokinetic with mild thickening of the aortic valve but no noted. Diastolic dysfunction is also normal for age Continue Digoxin 125 mcg QD and Carvedilol 12.5 mg BID (5) Mixed hyperlipidemia: Code(s): E78.2 - Mixed hyperlipidemia Plan: Results of his labs done last week reviewed and discussed with patient Reinforced low cholesterol diet Continue Fenofibrate 145 mg QD Will recheck labs in 4 months for follow-up (6) Chronic inflammatory demyelinating polyneuritis: Code(s): G61.81 - Chronic inflammatory demyelinating polyneuritis Plan: Continue Prednisone 1 mg QD Follow-up with Neurology as scheduled - just sees neurology once a year now (7) Neuropathy: Code(s): G62.9 - Polyneuropathy, unspecified Plan: EMG and NCV done a couple of years ago showed (+) severe sensory and motor chronic peripheral neuropathy affecting the legs - 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 (8) Hypercalcemia: Code(s): E83.52 - Hypercalcemia Plan: Resolved previously although her serum calcium was slightly elevated again on his recent labs at 10.3 Follow up with endocrinology as scheduled (9) Allergic rhinitis: Code(s): J30.9 - Allergic rhinitis, unspecified Qualifiers: Allergic rhinitis seasonality: unspecified Allergic rhinitis trigger: unspecified Qualified Code(s): J30.9 - Allergic rhinitis, unspecified Plan: Continue Fluticasone propionate nasal spray QD PRN (10) 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 Panel Fast 4 Months E78.00 - Pure hypercholesterolemia, unspecified Lipid Panel 4 Months E78.00 - Pure hypercholesterolemia, unspecified Complete Blood Count Auto Diff 4 Months I10 - Essential (primary) hypertension Hemoglobin A1c 4 Months E11.9 - Type 2 diabetes mellitus without complications TSH reflex Free T4 4 Months E78.00 - Pure hypercholesterolemia, unspecified Vitamin D 25-OH Total 4 Months E55.9 - Vitamin D deficiency, unspecified Microalbumin, Random (w Creat) 4 Months E11.9 - Type 2 diabetes mellitus without complications UA CC w/rflx Micro + Cult 4 Months R30.0 - Dysuria Referrals Dermatology Referral L81.9 - Disorder of pigmentation, unspecified Coding Level of Care Code Est Pt Level 4 (77272) Diagnoses Type 2 diabetes mellitus with diabetic polyneuropathy E11.42; Z79.4 Diabetes mellitus 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
== END 2022-12-31 13:28 | disposition home or self-care (01) ==
PROVIDERS: Visit Provider Internal Medicine
DX: I13.0 Hypertensive heart and chronic kidney disease with heart failure and stage 1 through stage 4 chronic kidney disease, or unspecified chronic kidney disease (principal); E11.42 Type 2 diabetes mellitus with diabetic polyneuropathy; N18.31 Chronic kidney disease, stage 3a; Z79.4 Long term (current) use of insulin; G61.81 Chronic inflammatory demyelinating polyneuritis; I50.9 Heart failure, unspecified; E78.2 Mixed hyperlipidemia; G62.9 Polyneuropathy, unspecified; E83.52 Hypercalcemia; J30.9 Allergic rhinitis, unspecified; E72.11 Homocystinuria; L81.9 Disorder of pigmentation, unspecified
CPT/HCPCS: 99214

== ENCOUNTER 2023-04-27 10:30 | Outpatient (REF) | payer MEDICARE, SELFPAY ==
[2023-04-27 10:58] LABS: MANUAL DIFF FLAG NO
[2023-04-27 11:10] LABS: Basophils Absolute Auto 0.1 X10*3/uL (0.0-0.2); Basophils Percent Auto 1.2 % (0-2); Eosinophils Absolute Auto 0.2 X10*3/uL (0.0-0.4); Eosinophils Percent Auto 3.3 % (0-4); Hematocrit 39.8 % (42.0-52.0); Hemoglobin 13.9 g/dl (14.0-18.0); Imm Gran Abs Auto 0.14 X10*3/uL (0.00-0.03); Imm Gran Pct Auto 2.3 % (0.0-0.4); Lymphocytes Absolute Auto 1.2 X10*3/uL (1.2-4.9); Lymphocytes Percent Auto 20.6 % (20-40); Mean Corpuscular HGB Conc 34.9 g/dl (31.0-36.0); Mean Corpuscular Hemoglobin 31.7 pg (27.0-33.0); Mean Corpuscular Volume 90.9 fL (80.0-98.0); Mean Platelet Volume 9.2 fL (9.4-12.4); Monocytes Absolute Auto 0.8 X10*3/uL (0.1-1.2); Monocytes Percent Auto 12.9 % (2-11); Neutrophils Absolute Auto 3.6 x10*3/uL (2.0-8.3); Neutrophils Percent Auto 59.7 % (45-73); Platelet Count 154 X10*3/uL (160-400); Red Blood Count 4.38 X10*6/uL (4.60-5.80); Red Cell Distribution Width 14.2 % (11.0-16.0)
[2023-04-27 11:11] LABS: Estimated Average Glucose 94 mg/dL; Hemoglobin A1c % 4.9 % (<6.0)
[2023-04-27 11:29] LABS: Appearance Urine Clear; Color Urine Yellow; Glucose Urine UA Negative (Negative); Leukocyte Esterase Urine Negative (Negative); Nitrite Urine Negative (Negative); PH 5.5 (5.0-9.0); Urine Blood Negative (Negative); Urine Ketones Negative (Negative); Urine Protein Negative (Neg-Trace)
[2023-04-27 11:40] LABS: Alanine Aminotransferase 37 U/L (0-40); Albumin Level 4.6 g/dL (3.5-5.0); Alkaline Phosphatase 46 U/L (39-117); Anion Gap 12 (12-20); Aspartate Amino Transferase 29 U/L (5-37); Bilirubin Total 0.8 mg/dL (0.0-1.0); Blood Urea Nitrogen 45 mg/dL (9-16); Carbon Dioxide 27 mmol/L (22-29); Chloride 105 mmol/L (96-108); Cholesterol 136 mg/dL (<200); Estimated Glomerular Filt Rate 46; Glucose Fasting 122 mg/dL (60-99); HDL Cholesterol 30 mg/dL (>40); LDL Cholesterol Calculated 75 mg/dL (<100); Potassium 4.8 mmol/L (3.3-5.1); Sodium 139 mmol/L (135-145); Triglycerides 156 mg/dL (<150)
[2023-04-27 11:56] LABS: Creatinine Urine 32.45 mg/dL; Microalbum/Creatinine Ratio Ur 36.9 ug/mg cr (<30)
[2023-04-27 11:59] LABS: TSH reflex Free T4 2.35 uIU/mL (0.32-4.0); Vitamin D 25-OH Total 49.3 ng/mL (>30)
== END 2023-04-27 10:31 | disposition home or self-care (01) ==
LOC: HO.LAB 10:30
PROVIDERS: PCP Internal Medicine; Visit Provider Internal Medicine
DX: R30.0 Dysuria (principal); E55.9 Vitamin D deficiency, unspecified; E11.9 Type 2 diabetes mellitus without complications; E78.00 Pure hypercholesterolemia, unspecified; I10 Essential (primary) hypertension
CPT/HCPCS: 36415; 80053; 80061; 81003; 82043; 82306; 82570; 83036; 84443; 85025

== ENCOUNTER 2023-05-04 12:36 | Outpatient (AMB) | payer MEDICARE, SELFPAY ==
[2023-05-04 12:39] VITALS: BP 126/68; PULSE 61; O2SAT 98; BMI 25.7
--- NOTE | 2023-05-04 12:39 | MHC.PC.OV ---
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 Required: No Accompanied by: Self / Same As Patient Allergies atenolol [ATENOLOL] Allergy (Severe, Verified 05/04/23 13:16) ANAPHYLAXIS, anaphya=laxis pollen Allergy (Unknown, Uncoded 05/04/23 13:16) rhinitis Medication List - Last Reconciled 05/04/23 by Max Alonso MD amlodipine 10 mg PO DAILY 30 days atorvastatin 10 mg PO BEDTIME 30 days blood sugar diagnostic ([employer] Precision Marcelo Strips) As directed carvedilol 12.5 mg PO BID clonazepam 0.5 mg (1/2 x 1 mg) PO BID 30 days digoxin 125 mcg PO DAILY fenofibrate nanocrystallized 145 mg PO DAILY flash glucose scanning reader As directed flash glucose sensor ([employer] Sherice 14 Day Sensor kit) As directed fluticasone propionate 50 mcg/actuation 1 spray intranasal DAILY PRN hydrochlorothiazide 50 mg (2 x 25 mg) PO DAILY insulin aspart U-100 (Novolog FlexPen U-100 Insulin aspart) 3 - 4 units subcut TID lancets As directed losartan 100 mg PO DAILY pen needle, diabetic (BD Alba 2nd Gen Pen Needle) 1 ea miscellaneous QID potassium chloride ER 20 mEq PO DAILY prednisone 1 mg PO DAILY sitagliptin phosphate (Januvia) 100 mg PO DAILY Toujeo Max U-300 SoloStar (insulin glargine U-300 conc) 18 units (0.06 mL) subcut BEDTIME NS Tobacco use date assessed: 05/04/23 Fall risk assessment: No Falls in past year Last assessed Fall Risk: 05/04/23 Dental Screening Dental Screen Date: 05/04/23 Did you have a dental visit in the last 12 months?: Yes Did you have a dental problem in the last 6 months where you did not have access to dental care?: No Was dental information given to patient?: Patient has dentist HPI DM, CIDP, hyperlipidemia HPI Details Patient comes in today for his follow up visit States that he feels okay He denies any headaches or dizziness Denies any chest pains, no SOB No nausea/vomiting, no abdominal pain No change in bowel habits noted He was recently diagnosed with a melanoma and a basal cell carcinoma when he had the lesions on the right side of his nose excised in early March 2023 He was referred to [facility] for further evaluation and management and states that he was just seen by them recently but his appointment was with a nurse practitioner and that the SURVEYOR HELPER ROD supposedly did not do much except take some measurements of the lesion on his nose and he was then advised that he will be seeing a plastic surgeon next and they will be performing a Moh's excision surgery States that he is scheduled to see plastic surgery but not until next year in June 2023 and he is wondering why his appointments are booked that far out when he was advised previously that melanoma is a more aggressive type of skin cancer Had his follow up labs done last week - to discuss his results [facility] Medical History Prostate cancer screening Overweight (BMI 25.0-29.9) Allergic rhinitis Hypercalcemia Neuropathy Mixed hyperlipidemia Benign essential hypertension Chronic congestive heart failure Chronic inflammatory demyelinating polyneuritis GERD (gastroesophageal reflux disease) Anxiety RLS (restless legs syndrome) CHF (congestive heart failure) Chronic kidney disease, stage 3 Type 2 diabetes mellitus with diabetic polyneuropathy Essential hypertension Hypertriglyceridemia Type 2 diabetes mellitus with chronic kidney disease Surgical History History of bronchoscopy Hx of removal of cyst Hx of cardiac catheterization Hx of hand surgery Hx of bilateral inguinal hernia repair Hx of tonsillectomy Family History Father Smoker Diabetes Hypertension Mother Smoker Asthma Emphysema, unspecified Social History Household Members Other:: Sister Housing: House Alcohol intake: never Patient Tobacco Use Status: Never used Tobacco e-Cigarette/Vaping Use: Never Used Second Hand Smoke Exposure: Yes service: No Current occupational status: retired Cognitive needs: No Hearing needs: No Vision needs: Yes Questionnaire PHQ-9 Over the last 2 weeks, how often have you been bothered by any of the following problems? 1. Little interest or pleasure in doing things: not at all 2. Feeling down, depressed, or hopeless: not at all 3. Trouble falling or staying asleep, or sleeping too much: not at all 4. Feeling tired or having little energy: not at all 5. Poor appetite or overeating: not at all 6. Feeling bad about yourself - or that you are a failure or have let yourself or your family down: not at all 7. Trouble concentrating on things, such as reading the newspaper or watching television: not at all 8. Moving or speaking so slowly that other people could have noticed. Or the opposite - being so fidgety or restless that you have been moving around a lot more than usual: not at all 9. Thoughts that you would be better off or of hurting yourself in some way: not at all Total score: 0 Depression Screening Interpretation: Negative Depression Screening Done: Yes 16174 - PHQ-9 Billing: Yes Source: Developed by Drs. Hans Correa, Carley Davalos, Leonel Jackson and colleagues, with an educational reynold from [employer]. Thrive Questionnaire Date Thrive assessed: 05/04/23 I am a: Patient What is your living situation today?: I have a steady place to live Within the past 12 months, did the food you bought not last and you didn't have the money to get more?: Never true Within the past 12 months, did you worry whether your food would run out before you got money to buy more?: Never true Do you have trouble paying for medicines?: No Do you have trouble getting transportation to medical appointments?: No Do you have trouble paying your heating and electricity bill?: No Do you have trouble taking care of your child, family member or friend?: No Do you have trouble with day-to-day activities such as bathing, preparing meals, shopping, managing finances, etc.?: No Are you currently unemployed and looking for a job?: No Are you interested in more education?: No Please select the resources that you would like help with: None Currently or been in a relationship where the following occur: no concerns reported AUDIT C Alcohol Use Questionnaire (AUDIT-C) 1. How often do you have a drink containing alcohol?: Never 3. How often do you have six or more drinks on one occasion?: Never Total Score: 0 Score Reviewed/Action Taken: Yes EDILIA-7 AMB Questionnaire EDILIA-7 Date EDILIA - 7 assessed: 05/04/23 Feeling nervous, anxious, or on edge: 0 = Not at all Not being able to stop or control worryin = Not at all Worrying too much about different things: 0 = Not at all Trouble relaxin = Not at all Being so restless that it is hard to sit still: 0 = Not at all Becoming easily annoyed or irritable: 0 = Not at all Feeling afraid as if something awful might happen: 0 = Not at all Total EDILIA-7 score (0-4 normal; 5-9 mild; 10-14 moderate; 15-21 severe): 0 Source: Developed by Drs. Hans Correa, Carley Davalos, Leonel Jackson and colleagues, with an educational reynold from [employer]. Review of Systems Const Denies chills, Denies fatigue, Denies fever(s) and Denies headache(s) ENT Denies dysphagia, Denies dizziness, Denies otalgia, Denies headache(s), Denies odynophagia and Denies sore throat Card Denies chest pain, Denies palpitations and Denies dyspnea Resp Denies cough and Denies dyspnea GI Denies abdominal pain, Denies constipation, Denies dysphagia, Denies heartburn, Denies diarrhea, Denies nausea, Denies odynophagia and Denies vomiting Denies difficulty urinating, Denies dysuria, Denies nocturia and Denies urinary frequency Skin/Breast Denies rash Neuro Denies dizziness and Denies headache(s) Endo Denies fatigue and Denies palpitations Physical exam (Primary Care) Vital Signs: Last Vital Signs Pulse 61 05/04/23 12:39 BP 126/68 05/04/23 12:39 Pulse Ox 98 05/04/23 12:39 Oxygen Delivery Method Room Air 05/04/23 12:39 BMI result Body Mass Index 25.7 Tobacco/Smoking Status: Tobacco use Status Tobacco use date assessed 05/04/23 05/04/23 12:48 Patient Tobacco Use Status Never used Tobacco 05/04/23 12:48 e-Cigarette/Vaping Use Never Used 05/04/23 12:48 PHQ-9: PHQ-9 Score PHQ-9: Total score 0 05/04/23 13:53 Depression Screening Interpretation: Negative Thrive Assessment: Date of Thrive Assessment Date Thrive assessed 05/04/23 05/04/23 12:48 Currently or been in a relationship where the following occur: no concerns reported Const General: no acute distress and alert HENMT Ears: TM's normal bilaterally and EAC's normal Throat: Yes posterior oropharynx normal and Yes tonsils normal (no TP congestion noted) Neck Neck: Yes no lymphadenopathy and Yes supple Resp Auscultation: clear to auscultation bilaterally, no rales and no wheezes Cardio Rate: regular rate Rhythm: regular rhythm Heart sounds: Murmur heart sound present systolic early, soft, II/ and at the right sternal border (upper sternal border) GI Palpation (GI): Soft to palpation and nontender Auscultation: normal bowel sounds General: Yes no CVA tenderness Back/Spine/Pelvis Back: no CVA tenderness Skin Rashes: no rashes Extrem General: Yes no clubbing, cyanosis or edema Results Reviewed Results Reviewed: Laboratory Tests 04/27/23 04/27/23 10:55 10:56 WBC 6.0 Hgb 13.9 L Hct 39.8 L Plt Count 154 L D Sodium 139 Potassium 4.8 Creatinine 1.52 H Estimated GFR 46 Fasting Glucose 122 H Hemoglobin A1c % 4.9 Calcium 10.0 AST 29 ALT 37 Triglycerides 156 H Cholesterol 136 LDL Cholesterol, Calc 75 HDL Cholesterol 30 L 25-OH Vitamin D Total 49.3 TSH 2.35 Ur Specific [place] 1.010 Urine Protein Negative Urine Glucose (UA) Negative Urine Blood Negative Microalb/Creat Ratio 36.9 H Assessment and Plan Assessment & Plan (1) Type 2 diabetes mellitus with diabetic polyneuropathy: Code(s): E11.42 - Type 2 diabetes mellitus with diabetic polyneuropathy Qualifiers: Diabetes mellitus group home insulin use: with 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 Qualified Code(s): E11.42 - Type 2 diabetes mellitus with diabetic polyneuropathy; Z79.4 - buttermaker continuous churn (current) use of insulin Plan: HgbA1c was normal at 4.9% on his labs done last week (was at 4.6% a few months ago) - goal is <7.0% Reinforced diabetic diet Continue Toujeo Solostar pen 12 units once a day, NovoLog FlexPen at 3-4 units 3 times a day with meals per sliding scale and Januvia 100 mg QD We tried cutting his Januvia in half to 50 mg QD previously because his HgbA1c has been consistently low BUT he went back to 100 mg QD when his blood sugar readings started going up shortly afterwards He was seeing endocrinology in the past but his prescribing sack lifter (Kim Pena) left the practice and he is now seeing us for his diabetes management (2) Chronic kidney disease, stage 3: Code(s): N18.30 - Chronic kidney disease, stage 3 unspecified Qualifiers: Chronic kidney disease stage 3 subtype: stage 3a (GFR 45-59) Qualified Code(s): N18.31 - Chronic kidney disease, stage 3a Plan: Stable - will continue to monitor GFR and renal function regularly (3) Benign essential hypertension: Code(s): I10 - Essential (primary) hypertension Plan: Reinforced low sodium diet - goal is systolic BP of at least 130 to 140 mm or less Continue Losartan 100 mg QD, Amlodipine 10 mg QD and Hydrochlorothiazide 25 mg 2 tablets QD Patient also takes Potassium Chloride ER tablets 20 mEq once a day as he is on diuretics (4) Chronic congestive heart failure: Code(s): I50.9 - Heart failure, unspecified Qualifiers: Heart failure type: unspecified Qualified Code(s): I50.9 - Heart failure, unspecified Plan: Compensated/asymptomatic - reinforced fluid restriction Echocardiogram done in May 2019 showed normal LV systolic function and visually estimated EF was between 60-65%; basal and mid inferior segments are hypokinetic with mild thickening of the aortic valve but no noted. Diastolic dysfunction is also normal for age Continue Digoxin 125 mcg QD and Carvedilol 12.5 mg BID (5) Mixed hyperlipidemia: Code(s): E78.2 - Mixed hyperlipidemia Plan: Results of his labs done last week reviewed and discussed with patient Reinforced low cholesterol diet Continue Fenofibrate 145 mg QD Will recheck his labs and fasting lipids in 4 months for follow-up (6) Chronic inflammatory demyelinating polyneuritis: Code(s): G61.81 - Chronic inflammatory demyelinating polyneuritis Plan: Continue Prednisone 1 mg QD Follow-up with Neurology as scheduled - states that he just sees neurology once a year now (7) Neuropathy: Code(s): G62.9 - Polyneuropathy, unspecified Plan: EMG and NCV done a couple of years ago showed (+) severe sensory and motor chronic peripheral neuropathy affecting the legs - 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 (8) Hypercalcemia: Code(s): E83.52 - Hypercalcemia Plan: His serum calcium level is back to normal at 10.0 on his recent labs Follow up with endocrinology as scheduled (9) Allergic rhinitis: Code(s): J30.9 - Allergic rhinitis, unspecified Qualifiers: Allergic rhinitis seasonality: unspecified Allergic rhinitis trigger: unspecified Qualified Code(s): J30.9 - Allergic rhinitis, unspecified Plan: Continue Fluticasone propionate nasal spray QD PRN (10) 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 Plan: Was started on Folic acid 1 mg QD by one of his other doctors as he was told that his homocysteine level came back very high Homocyteine level was elevated at 25.6 when rechecked recently (11) Melanoma: Code(s): C43.9 - Malignant melanoma of skin, unspecified Qualifiers: Melanoma location: nose Qualified Code(s): C43.31 - Malignant melanoma of nose Plan: He was recently diagnosed with a melanoma and a basal cell carcinoma when he had the lesions on the right side of his nose excised in early March 2023 States that he was just recently seen a nurse practitioner, who took some measurements of the lesion on his nose and he was then advised that he will be seeing a plastic surgeon next and they will be performing a Moh's excision surgery - he is scheduled to be seen plastic surgery sometime in June 2023 (12) Overweight (BMI 25.0-29.9): Code(s): E66.3 - Overweight Plan: Reinforced diet/exercise as tolerated/lose weight - he has gained some weight since his last visit Plan Follow up in 4 months Orders: Orders Lipid Panel 4 Months E78.00 - Pure hypercholesterolemia, unspecified Comprehensive [place]. Panel Fast 4 Months E78.00 - Pure hypercholesterolemia, unspecified Hemoglobin A1c 4 Months E11.9 - Type 2 diabetes mellitus without complications Lactate Dehydrogenase 4 Months C43.9 - Malignant melanoma of skin, unspecified Complete Blood Count Auto Diff 4 Months I10 - Essential (primary) hypertension Microalbumin, Random (w Creat) 4 Months E11.9 - Type 2 diabetes mellitus without complications UA CC w/rflx Micro + Cult 4 Months R30.0 - Dysuria TSH reflex Free T4 4 Months E78.00 - Pure hypercholesterolemia, unspecified Vitamin D 25-OH Total 4 Months E55.9 - Vitamin D deficiency, unspecified Coding Level of Care Code Est Pt Level 4 (80474) Diagnoses Type 2 diabetes mellitus with diabetic polyneuropathy, with long-term current use of insulin E11.42; Z79.4 Diabetes mellitus group home insulin use: with group home use Stage 3a chronic kidney disease N18.31 Chronic kidney disease stage 3 subtype: stage 3a (GFR 45-59) Benign essential hypertension I10 Chronic congestive heart failure, unspecified heart failure type I50.9 Heart failure type: unspecified Mixed hyperlipidemia E78.2 Chronic inflammatory demyelinating polyneuritis G61.81 Neuropathy G62.9 Hypercalcemia E83.52 Allergic rhinitis, unspecified seasonality, unspecified trigger J30.9 Allergic rhinitis seasonality: unspecified Allergic rhinitis trigger: unspecified 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 Melanoma location: nose Overweight (BMI 25.0-29.9) E66.3
== END 2023-05-04 13:55 | disposition home or self-care (01) ==
PROVIDERS: PCP Internal Medicine; Visit Provider Internal Medicine
DX: E11.42 Type 2 diabetes mellitus with diabetic polyneuropathy (principal); I13.0 Hypertensive heart and chronic kidney disease with heart failure and stage 1 through stage 4 chronic kidney disease, or unspecified chronic kidney disease; N18.31 Chronic kidney disease, stage 3a; I50.9 Heart failure, unspecified; E78.2 Mixed hyperlipidemia; G61.81 Chronic inflammatory demyelinating polyneuritis; G62.9 Polyneuropathy, unspecified; E83.52 Hypercalcemia; J30.9 Allergic rhinitis, unspecified; E72.11 Homocystinuria; C43.31 Malignant melanoma of nose; E66.3 Overweight
CPT/HCPCS: 99214

== ENCOUNTER 2023-08-24 12:07 | Outpatient (REF) | payer MEDICARE, SELFPAY ==
[2023-08-24 12:19] LABS: MANUAL DIFF FLAG NO
[2023-08-24 12:35] LABS: Basophils Absolute Auto 0.1 X10*3/uL (0.0-0.2); Basophils Percent Auto 0.9 % (0-2); Eosinophils Absolute Auto 0.2 X10*3/uL (0.0-0.4); Hematocrit 41.6 % (42.0-52.0); Hemoglobin 14.2 g/dl (14.0-18.0); Imm Gran Abs Auto 0.12 X10*3/uL (0.00-0.03); Imm Gran Pct Auto 1.7 % (0.0-0.4); Lymphocytes Absolute Auto 1.2 X10*3/uL (1.2-4.9); Lymphocytes Percent Auto 17.1 % (20-40); Mean Corpuscular HGB Conc 34.1 g/dl (31.0-36.0); Mean Corpuscular Volume 90.8 fL (80.0-98.0); Monocytes Absolute Auto 0.7 X10*3/uL (0.1-1.2); Monocytes Percent Auto 10.7 % (2-11); Neutrophils Absolute Auto 4.6 x10*3/uL (2.0-8.3); Neutrophils Percent Auto 66.6 % (45-73); Platelet Count 186 X10*3/uL (160-400); Red Blood Count 4.58 X10*6/uL (4.60-5.80); Red Cell Distribution Width 14.7 % (11.0-16.0); White Blood Count 6.9 X10*3/uL (4.8-10.8)
[2023-08-24 12:44] LABS: Estimated Average Glucose 94 mg/dL; Hemoglobin A1c % 4.9 % (<6.0)
[2023-08-24 13:20] LABS: Alanine Aminotransferase 34 U/L (0-40); Albumin Level 4.7 g/dL (3.5-5.0); Alkaline Phosphatase 65 U/L (39-117); Anion Gap 13 (12-20); Aspartate Amino Transferase 29 U/L (5-37); Bilirubin Total 0.8 mg/dL (0.0-1.0); Blood Urea Nitrogen 53 mg/dL (9-16); Calcium 9.8 mg/dL (8.4-10.2); Carbon Dioxide 26 mmol/L (22-29); Chloride 105 mmol/L (96-108); Cholesterol 144 mg/dL (<200); Estimated Glomerular Filt Rate 56; Glucose Fasting 124 mg/dL (60-99); HDL Cholesterol 29 mg/dL (>40); LDL Cholesterol Calculated 81 mg/dL (<100); Lactate Dehydrogenase 121 U/L (118-273); Potassium 4.6 mmol/L (3.3-5.1); Sodium 139 mmol/L (135-145); Total Protein 7.5 g/dL (6.5-8.0); Triglycerides 173 mg/dL (<150)
[2023-08-24 13:40] LABS: TSH reflex Free T4 2.08 uIU/mL (0.32-4.0); Vitamin D 25-OH Total 51.7 ng/mL (>30)
[2023-08-24 15:05] LABS: Appearance Urine Clear; Color Urine Yellow; Glucose Urine UA Negative (Negative); Leukocyte Esterase Urine Negative (Negative); Nitrite Urine Negative (Negative); PH 5.5 (5.0-9.0); Specific Gravity - Urine 1.015 (1.005-1.025); Urine Blood Negative (Negative); Urine Ketones Negative (Negative); Urine Protein Negative (Neg-Trace)
[2023-08-24 15:31] LABS: Creatinine Urine 46.69 mg/dL; Microalbum/Creatinine Ratio Ur 64.2 ug/mg cr (<30)
== END 2023-08-24 12:08 | disposition home or self-care (01) ==
LOC: HO.LAB 12:07
PROVIDERS: PCP Internal Medicine; Visit Provider Internal Medicine
DX: E78.00 Pure hypercholesterolemia, unspecified (principal); I10 Essential (primary) hypertension; E11.9 Type 2 diabetes mellitus without complications; R30.0 Dysuria; C43.9 Malignant melanoma of skin, unspecified; E55.9 Vitamin D deficiency, unspecified
CPT/HCPCS: 36415; 80053; 80061; 81003; 82043; 82306; 82570; 83036; 83615; 84443; 85025

== ENCOUNTER 2023-08-30 14:18 | Outpatient (AMB) | payer MEDICARE, SELFPAY ==
--- NOTE | 2023-08-30 14:28 | MHC.PC.OV ---
Vital Signs 08/30/23 14:30 Height 5 ft 8.5 in Weight 168 lb 8 oz BMI 25.2 BP 120/70 Blood Pressure Location Lt brachial Position Sitting Pulse 70 Pulse Source Pulse Oximeter Pulse Oximetry (%) 97 Oxygen Delivery Method Room Air Intake Visit Reasons: 4 MONTH F/U Intake Note: Patient is here to follow up on DM, HTN, CCHF, CKD. Food Quality Tester Required: No Toll Test Worker: Not Required per policy Accompanied by: Self / Same As Patient Allergies atenolol [ATENOLOL] Allergy (Severe, Verified 08/30/23 15:17) ANAPHYLAXIS, anaphya=laxis pollen Allergy (Unknown, Uncoded 08/30/23 15:17) rhinitis Medication List - Last Reconciled 08/30/23 by Max Alonso MD amlodipine 10 mg PO DAILY 30 days atorvastatin 10 mg PO BEDTIME 30 days blood sugar diagnostic ([employer] Precision Marcelo Strips) As directed carvedilol 12.5 mg PO BID clonazepam 0.5 mg (1/2 x 1 mg) PO BID 30 days digoxin 125 mcg PO DAILY fenofibrate nanocrystallized 145 mg PO DAILY flash glucose scanning reader As directed flash glucose sensor ([employer] Sherice 14 Day Sensor kit) As directed fluticasone propionate 50 mcg/actuation 1 spray intranasal DAILY PRN hydrochlorothiazide 50 mg (2 x 25 mg) PO DAILY insulin aspart U-100 (Novolog FlexPen U-100 Insulin aspart) 3 - 4 units (0.03 - 0.04 mL) subcut TID lancets As directed losartan 100 mg PO DAILY pen needle, diabetic (BD Alba 2nd Gen Pen Needle) 1 ea miscellaneous QID potassium chloride ER 20 mEq PO DAILY prednisone 1 mg PO DAILY sitagliptin phosphate (Januvia) 100 mg PO DAILY Toujeo Max U-300 SoloStar (insulin glargine U-300 conc) 18 units (0.06 mL) subcut BEDTIME NS Tobacco use date assessed: 08/30/23 Fall risk assessment: 1 Fall in past year (07/2023) Last assessed Fall Risk: 08/30/23 Dental Screening Dental Screen Date: 08/30/23 Did you have a dental visit in the last 12 months?: No Did you have a dental problem in the last 6 months where you did not have access to dental care?: No Was dental information given to patient?: No HPI 4 MONTH F/U HPI Details Patient comes in today for his follow up visit States that he feels okay He denies any headaches or dizziness Denies any chest pains, no SOB No nausea/vomiting, no abdominal pain No change in bowel habits noted He was diagnosed with a melanoma lesion and a basal cell carcinoma on the right side of his nose back in March 2023 subsequently underwent Moh's excision surgery for the lesions a couple of months ago and his surgical lesions are now well-healed Had his follow up labs done last week - to discuss his results [facility] Medical History (Updated 05/09/23 @ 03:45 by Max Alonso MD) Prostate cancer screening Overweight (BMI 25.0-29.9) Allergic rhinitis Hypercalcemia Neuropathy Mixed hyperlipidemia Benign essential hypertension Chronic congestive heart failure Chronic inflammatory demyelinating polyneuritis GERD (gastroesophageal reflux disease) Anxiety RLS (restless legs syndrome) CHF (congestive heart failure) Chronic kidney disease, stage 3 Type 2 diabetes mellitus with diabetic polyneuropathy Essential hypertension Hypertriglyceridemia Type 2 diabetes mellitus with chronic kidney disease Surgical History (Updated 09/26/23 @ 05:20 by Max Alonso MD) Status post Mohs surgery History of plastic surgery History of nasal surgery History of bronchoscopy Hx of removal of cyst Hx of cardiac catheterization Hx of hand surgery Hx of bilateral inguinal hernia repair Hx of tonsillectomy Family History Father Smoker Diabetes Hypertension Mother Smoker Asthma Emphysema, unspecified Social History Household Members Other:: Sister Housing: House Alcohol intake: never Patient Tobacco Use Status: Never used Tobacco e-Cigarette/Vaping Use: Never Used Second Hand Smoke Exposure: Yes service: No Current occupational status: retired Cognitive needs: No Hearing needs: No Vision needs: Yes Questionnaire PHQ-9 Over the last 2 weeks, how often have you been bothered by any of the following problems? 1. Little interest or pleasure in doing things: not at all 2. Feeling down, depressed, or hopeless: not at all 3. Trouble falling or staying asleep, or sleeping too much: not at all 4. Feeling tired or having little energy: not at all 5. Poor appetite or overeating: not at all 6. Feeling bad about yourself - or that you are a failure or have let yourself or your family down: not at all 7. Trouble concentrating on things, such as reading the newspaper or watching television: not at all 8. Moving or speaking so slowly that other people could have noticed. Or the opposite - being so fidgety or restless that you have been moving around a lot more than usual: not at all 9. Thoughts that you would be better off or of hurting yourself in some way: not at all Total score: 0 Depression Screening Interpretation: Negative Depression Screening Done: Yes 73824 - PHQ-9 Billing: Yes Source: Developed by Drs. Hans Correa, Carley Davalos, Leonel Jackson and colleagues, with an educational reynold from [employer]. Thrive Questionnaire Date Thrive assessed: 08/30/23 I am a: Patient What is your living situation today?: I have a steady place to live Within the past 12 months, did the food you bought not last and you didn't have the money to get more?: Never true Within the past 12 months, did you worry whether your food would run out before you got money to buy more?: Never true Do you have trouble paying for medicines?: No Do you have trouble getting transportation to medical appointments?: No Do you have trouble paying your heating and electricity bill?: No Do you have trouble taking care of your child, family member or friend?: No Do you have trouble with day-to-day activities such as bathing, preparing meals, shopping, managing finances, etc.?: No Are you currently unemployed and looking for a job?: No Are you interested in more education?: No Currently or been in a relationship where the following occur: no concerns reported THRIVE Score: 0 AUDIT C Alcohol Use Questionnaire (AUDIT-C) 1. How often do you have a drink containing alcohol?: Never 3. How often do you have six or more drinks on one occasion?: Never Total Score: 0 Score Reviewed/Action Taken: Yes EDILIA-7 AMB Questionnaire EDILIA-7 Date EDILIA - 7 assessed: 08/30/23 Feeling nervous, anxious, or on edge: 0 = Not at all Not being able to stop or control worryin = Not at all Worrying too much about different things: 0 = Not at all Trouble relaxin = Not at all Being so restless that it is hard to sit still: 0 = Not at all Becoming easily annoyed or irritable: 0 = Not at all Feeling afraid as if something awful might happen: 0 = Not at all Total EDILIA-7 score (0-4 normal; 5-9 mild; 10-14 moderate; 15-21 severe): 0 Source: Developed by Drs. Hans Correa, Carley Davalos, Leonel Jackson and colleagues, with an educational reynold from [employer]. Review of Systems Const Denies chills, Denies fatigue, Denies fever(s) and Denies headache(s) ENT Denies dysphagia, Denies dizziness, Denies otalgia, Denies headache(s), Denies odynophagia and Denies sore throat Card Denies chest pain, Denies palpitations and Denies dyspnea Resp Denies cough and Denies dyspnea GI Denies abdominal pain, Denies constipation, Denies dysphagia, Denies heartburn, Denies diarrhea, Denies nausea, Denies odynophagia and Denies vomiting Denies difficulty urinating, Denies dysuria, Denies nocturia and Denies urinary frequency Skin/Breast Denies rash Neuro Denies dizziness and Denies headache(s) Endo Denies fatigue and Denies palpitations Physical exam (Primary Care) Vital Signs: Last Vital Signs Pulse 70 08/30/23 14:30 BP 120/70 08/30/23 14:30 Pulse Ox 97 08/30/23 14:30 Oxygen Delivery Method Room Air 08/30/23 14:30 BMI result Body Mass Index 25.2 Tobacco/Smoking Status: Tobacco use Status Tobacco use date assessed 08/30/23 08/30/23 14:42 Patient Tobacco Use Status Never used Tobacco 08/30/23 14:42 e-Cigarette/Vaping Use Never Used 08/30/23 14:42 PHQ-9: PHQ-9 Score PHQ-9: Total score 0 08/30/23 15:17 Depression Screening Interpretation: Negative Thrive Assessment: Date of Thrive Assessment Date Thrive assessed 08/30/23 08/30/23 14:42 Currently or been in a relationship where the following occur: no concerns reported Const General: no acute distress and alert [facility] Other: (+) well healed scar over the right side of the nose and the face Ears: TM's normal bilaterally and EAC's normal Throat: Yes posterior oropharynx normal and Yes tonsils normal (no TP congestion noted) Neck Neck: Yes no lymphadenopathy and Yes supple Resp Auscultation: clear to auscultation bilaterally, no rales and no wheezes Cardio Rate: regular rate Rhythm: regular rhythm Heart sounds: Murmur heart sound present systolic early, soft, II/ and at the right sternal border (upper sternal border) GI Palpation (GI): Soft to palpation and nontender Auscultation: normal bowel sounds General: Yes no CVA tenderness Back/Spine/Pelvis Back: no CVA tenderness Skin Rashes: no rashes Extrem General: Yes no clubbing, cyanosis or edema Results Reviewed Results Reviewed: Laboratory Tests 08/24/23 08/24/23 08/24/23 12:14 12:14 12:18 WBC 6.9 Hgb 14.2 Hct 41.6 L Plt Count 186 Sodium 139 Potassium 4.6 Creatinine 1.28 Estimated GFR 56 Fasting Glucose 124 H Hemoglobin A1c % 4.9 Calcium 9.8 AST 29 ALT Triglycerides 173 H Cholesterol 144 LDL Cholesterol, Calc 81 HDL Cholesterol 29 L 25-OH Vitamin D Total 51.7 TSH 2.08 Ur Specific Erwin 1.015 Urine Protein Negative Urine Glucose (UA) Negative Urine Blood Negative Urine Nitrite Negative Ur Leukocyte Esterase Negative Microalb/Creat Ratio 64.2 H 08/24/23 12:18 WBC Hgb Hct Plt Count Sodium Potassium Creatinine Estimated GFR Fasting Glucose Hemoglobin A1c % Calcium AST ALT 34 Triglycerides Cholesterol LDL Cholesterol, Calc HDL Cholesterol 25-OH Vitamin D Total TSH Ur Specific Erwin Urine Protein Urine Glucose (UA) Urine Blood Urine Nitrite Ur Leukocyte Esterase Microalb/Creat Ratio Assessment and Plan Assessment & Plan (1) Type 2 diabetes mellitus with diabetic polyneuropathy: Code(s): E11.42 - Type 2 diabetes mellitus with diabetic polyneuropathy Qualifiers: Diabetes mellitus detention insulin use: with detention use Qualified Code(s): E11.42 - Type 2 diabetes mellitus with diabetic polyneuropathy; Z79.4 - senior living (current) use of insulin Plan: HgbA1c was normal at 4.9% on his labs done last week (was at 4.6% a few months ago) - goal is <7.0% Reinforced diabetic diet Continue Toujeo Solostar pen 12 units once a day, NovoLog FlexPen at 3-4 units 3 times a day with meals per sliding scale and Januvia 100 mg QD We tried cutting his Januvia in half to 50 mg QD previously because his HgbA1c has been consistently low BUT he went back to 100 mg QD when his blood sugar readings started going up shortly afterwards He was seeing endocrinology in the past but his prescribing facing slitter (Kim Pnea) left the practice and he is now seeing us for his diabetes management (2) Mixed hyperlipidemia: Code(s): E78.2 - Mixed hyperlipidemia Plan: Results of his labs done last week reviewed and discussed with patient Reinforced low cholesterol diet Continue Fenofibrate 145 mg QD Will recheck his labs and fasting lipids in 4 months for follow-up (3) Chronic kidney disease, stage 3: Code(s): N18.30 - Chronic kidney disease, stage 3 unspecified Qualifiers: Chronic kidney disease stage 3 subtype: stage 3a (GFR 45-59) Qualified Code(s): N18.31 - Chronic kidney disease, stage 3a Plan: Stable - will continue to monitor GFR and renal function regularly (4) Chronic congestive heart failure: Code(s): I50.9 - Heart failure, unspecified Qualifiers: Heart failure type: unspecified Qualified Code(s): I50.9 - Heart failure, unspecified Plan: Compensated/asymptomatic - reinforced fluid restriction Echocardiogram done in May 2019 showed normal LV systolic function and visually estimated EF was between 60-65%; basal and mid inferior segments are hypokinetic with mild thickening of the aortic valve but no noted. Diastolic dysfunction is also normal for age Continue Digoxin 125 mcg QD and Carvedilol 12.5 mg BID (5) Benign essential hypertension: Code(s): I10 - Essential (primary) hypertension Plan: Reinforced low sodium diet - goal is systolic BP of at least 130 to 140 mm or less Continue Losartan 100 mg QD, Amlodipine 10 mg QD and Hydrochlorothiazide 25 mg 2 tablets QD Patient also takes Potassium Chloride ER tablets 20 mEq once a day as he is on diuretics (6) Chronic inflammatory demyelinating polyneuritis: Code(s): G61.81 - Chronic inflammatory demyelinating polyneuritis Plan: Continue Prednisone 1 mg QD Follow-up with Neurology as scheduled - states that he just sees neurology once a year now (7) Neuropathy: Code(s): G62.9 - Polyneuropathy, unspecified Plan: EMG and NCV done a couple of years ago showed (+) severe sensory and motor chronic peripheral neuropathy affecting the legs - 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 (8) Hypercalcemia: Code(s): E83.52 - Hypercalcemia Plan: His serum calcium level has remained normal at 9.8 on his recent labs Follow up with endocrinology as scheduled (9) Allergic rhinitis: Code(s): J30.9 - Allergic rhinitis, unspecified Qualifiers: Allergic rhinitis seasonality: unspecified Allergic rhinitis trigger: unspecified Qualified Code(s): J30.9 - Allergic rhinitis, unspecified Plan: Continue Fluticasone propionate nasal spray QD PRN (10) 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 Plan: Continue Folic acid 1 mg QD - was started by one of his other doctors a couple of years ago as he was told that his homocysteine level came back very high Homocyteine level was elevated at 25.6 when rechecked recently (11) Melanoma: Code(s): C43.9 - Malignant melanoma of skin, unspecified Qualifiers: Melanoma location: nose Qualified Code(s): C43.31 - Malignant melanoma of nose Plan: S/P Moh's excision surgery a couple of months ago - his facial and nasal wounds currently appear well-healed with only minimally noticeable scarring noted (12) Overweight (BMI 25.0-29.9): Code(s): E66.3 - Overweight Plan: Reinforced diet/exercise as tolerated/lose weight Plan Follow up in 4 months Coding Level of Care Code Est Pt Level 4 (16977) Diagnoses Type 2 diabetes mellitus with diabetic polyneuropathy, with long-term current use of insulin E11.42; Z79.4 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 insulin 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: with detention 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 Mixed hyperlipidemia E78.2 Stage 3a chronic kidney disease N18.31 Chronic kidney disease stage 3 subtype: stage 3a (GFR 45-59) Chronic congestive heart failure, unspecified heart failure type I50.9 Heart failure type: unspecified Benign essential hypertension I10 Chronic inflammatory demyelinating polyneuritis G61.81 Neuropathy G62.9 Hypercalcemia E83.52 Allergic rhinitis, unspecified seasonality, unspecified trigger J30.9 Allergic rhinitis seasonality: unspecified Allergic rhinitis trigger: unspecified 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 Melanoma location: nose Overweight (BMI 25.0-29.9) E66.3
[2023-08-30 14:30] VITALS: BP 120/70; PULSE 70; O2SAT 97; BMI 25.2
== END 2023-08-30 15:51 | disposition home or self-care (01) ==
PROVIDERS: PCP Internal Medicine; Visit Provider Internal Medicine
DX: E11.42 Type 2 diabetes mellitus with diabetic polyneuropathy (principal); I13.0 Hypertensive heart and chronic kidney disease with heart failure and stage 1 through stage 4 chronic kidney disease, or unspecified chronic kidney disease; N18.31 Chronic kidney disease, stage 3a; I50.9 Heart failure, unspecified; G61.81 Chronic inflammatory demyelinating polyneuritis; G62.9 Polyneuropathy, unspecified; E83.52 Hypercalcemia; J30.9 Allergic rhinitis, unspecified; E72.11 Homocystinuria; C43.31 Malignant melanoma of nose; E66.3 Overweight
CPT/HCPCS: 99214

== ENCOUNTER 2023-12-27 11:34 | Outpatient (REF) | payer MEDICARE, SELFPAY ==
[2023-12-27 11:50] LABS: MANUAL DIFF FLAG NO
[2023-12-27 12:27] LABS: Basophils Percent Auto 0.7 % (0-2); Eosinophils Absolute Auto 0.2 X10*3/uL (0.0-0.4); Eosinophils Percent Auto 2.9 % (0-4); Hematocrit 39.4 % (42.0-52.0); Hemoglobin 13.5 g/dl (14.0-18.0); Imm Gran Abs Auto 0.06 X10*3/uL (0.00-0.03); Lymphocytes Absolute Auto 1.1 X10*3/uL (1.2-4.9); Lymphocytes Percent Auto 18.5 % (20-40); Mean Corpuscular HGB Conc 34.3 g/dl (31.0-36.0); Mean Corpuscular Hemoglobin 31.5 pg (27.0-33.0); Mean Corpuscular Volume 91.8 fL (80.0-98.0); Mean Platelet Volume 9.6 fL (9.4-12.4); Monocytes Absolute Auto 0.6 X10*3/uL (0.1-1.2); Monocytes Percent Auto 11.1 % (2-11); Neutrophils Absolute Auto 3.8 x10*3/uL (2.0-8.3); Neutrophils Percent Auto 65.8 % (45-73); Platelet Count 146 X10*3/uL (160-400); Red Blood Count 4.29 X10*6/uL (4.60-5.80); Red Cell Distribution Width 14.6 % (11.0-16.0); White Blood Count 5.8 X10*3/uL (4.8-10.8)
[2023-12-27 12:29] LABS: Appearance Urine Clear; Color Urine Yellow; Glucose Urine UA Negative (Negative); Leukocyte Esterase Urine Negative (Negative); Nitrite Urine Negative (Negative); PH 8.5 (5.0-9.0); Specific Gravity - Urine 1.015 (1.005-1.025); Urine Blood Negative (Negative); Urine Ketones Negative (Negative); Urine Protein Negative (Neg-Trace)
[2023-12-27 12:34] LABS: Estimated Average Glucose 77 mg/dL; Hemoglobin A1c % 4.3 % (<6.0)
[2023-12-27 12:49] LABS: Creatinine Urine 48.47 mg/dL; Microalbum/Creatinine Ratio Ur 18.5 ug/mg cr (<30)
[2023-12-27 12:54] LABS: B Type Natriuretic Peptide 96 pg/mL (<100)
[2023-12-27 13:39] LABS: Alanine Aminotransferase 23 U/L (0-40); Albumin Level 4.8 g/dL (3.5-5.0); Alkaline Phosphatase 44 U/L (39-117); Anion Gap 15 (12-20); Aspartate Amino Transferase 20 U/L (5-37); Bilirubin Total 0.9 mg/dL (0.0-1.0); Blood Urea Nitrogen 58 mg/dL (9-16); Calcium 10.6 mg/dL (8.4-10.2); Carbon Dioxide 28 mmol/L (22-29); Chloride 102 mmol/L (96-108); Cholesterol 117 mg/dL (<200); Estimated Glomerular Filt Rate 56; Glucose Fasting 72 mg/dL (60-99); HDL Cholesterol 35 mg/dL (>40); LDL Cholesterol Calculated 69 mg/dL (<100); Sodium 141 mmol/L (135-145); Total Protein 7.2 g/dL (6.5-8.0); Triglycerides 68 mg/dL (<150)
[2023-12-27 13:47] LABS: Folate > 20.0 ng/mL (> or = 4.0); Vitamin B12 1899 pg/mL (200-900)
[2023-12-27 14:09] LABS: TSH reflex Free T4 2.05 uIU/mL (0.32-4.0); Vitamin D 25-OH Total 66.6 ng/mL (>30)
== END 2023-12-27 11:35 | disposition home or self-care (01) ==
LOC: HO.LAB 11:34
PROVIDERS: PCP Internal Medicine; Visit Provider Internal Medicine
DX: D64.9 Anemia, unspecified (principal); E78.00 Pure hypercholesterolemia, unspecified; R30.0 Dysuria; E11.9 Type 2 diabetes mellitus without complications; E55.9 Vitamin D deficiency, unspecified; E53.8 Deficiency of other specified B group vitamins; I50.9 Heart failure, unspecified
CPT/HCPCS: 36415; 80053; 80061; 81003; 82043; 82306; 82570; 82607; 82746; 83036; 83880; 84443; 85025

== ENCOUNTER 2024-01-02 13:52 | Outpatient (AMB) | payer MEDICARE, SELFPAY ==
--- NOTE | 2024-01-02 13:56 | MHC.PC.OV ---
Vital Signs 01/02/24 14:01 Height 5 ft 8.5 in Weight 156 lb 6 oz BMI 23.4 BP 100/70 Blood Pressure Location Lt brachial Position Sitting Pulse 56 Pulse Source Pulse Oximeter Pulse Oximetry (%) 98 Oxygen Delivery Method Room Air Intake Visit Reasons: DM, CIDP, hyperlipidemia, HTN, CKD Intake Note: Patient is here to follow up on DM, CIPD, HLD, HTN, CKD. Senior Report Developer Required: No Junior Brand Manager: Not Required per policy Accompanied by: Self / Same As Patient Allergies atenolol [ATENOLOL] Allergy (Severe, Verified 01/02/24 14:34) ANAPHYLAXIS, anaphya=laxis pollen Allergy (Unknown, Uncoded 01/02/24 14:34) rhinitis Medication List - Last Reconciled 01/02/24 by Max Alonso MD amlodipine 10 mg PO DAILY 30 days atorvastatin 10 mg PO BEDTIME 30 days blood sugar diagnostic (FreeStyle Precision Marcelo Strips) As directed carvedilol 12.5 mg PO BID clonazepam 0.5 mg (1/2 x 1 mg) PO BID 30 days digoxin 125 mcg PO DAILY fenofibrate nanocrystallized 145 mg PO DAILY flash glucose scanning reader As directed flash glucose sensor (LiquiGlideStyle Sherice 14 Day Sensor kit) As directed fluticasone propionate 50 mcg/actuation 1 spray intranasal DAILY PRN hydrochlorothiazide 50 mg (2 x 25 mg) PO DAILY insulin aspart U-100 (Novolog FlexPen U-100 Insulin aspart) 3 - 4 units (0.03 - 0.04 mL) subcut TID lancets As directed losartan 100 mg PO DAILY pen needle, diabetic (BD Alba 2nd Gen Pen Needle) 1 ea miscellaneous QID potassium chloride ER 20 mEq PO DAILY prednisone 1 mg PO DAILY sitagliptin phosphate (Januvia) 100 mg PO DAILY Toujeo Max U-300 SoloStar (insulin glargine U-300 conc) 18 units (0.06 mL) subcut BEDTIME NS Tobacco use date assessed: 01/02/24 Fall risk assessment: No Falls in past year Last assessed Fall Risk: 01/02/24 Dental Screening Dental Screen Date: 08/30/23 HPI DM, CIDP, hyperlipidemia, HTN, CKD HPI Details Patient comes in today for his follow up visit States that he feels okay He denies any headaches or dizziness Denies any chest pains, no SOB No nausea/vomiting, no abdominal pain No change in bowel habits noted Needs his Clonazepam Rx refilled He had his follow up labs done last week - to discuss his results [facility] Medical History (Updated 01/02/24 @ 15:26 by Max Alonso MD) Anxiety Prostate cancer screening Overweight (BMI 25.0-29.9) Allergic rhinitis Hypercalcemia Neuropathy Mixed hyperlipidemia Benign essential hypertension Chronic congestive heart failure Chronic inflammatory demyelinating polyneuritis GERD (gastroesophageal reflux disease) RLS (restless legs syndrome) CHF (congestive heart failure) Chronic kidney disease, stage 3 Type 2 diabetes mellitus with diabetic polyneuropathy Essential hypertension Hypertriglyceridemia Type 2 diabetes mellitus with chronic kidney disease Surgical History Status post Mohs surgery History of plastic surgery History of nasal surgery History of bronchoscopy Hx of removal of cyst Hx of cardiac catheterization Hx of hand surgery Hx of bilateral inguinal hernia repair Hx of tonsillectomy Family History Father Smoker Diabetes Hypertension Mother Smoker Asthma Emphysema, unspecified Social History Household Members Other:: Sister Housing: House Alcohol intake: never Patient Tobacco Use Status: Never used Tobacco e-Cigarette/Vaping Use: Never Used Second Hand Smoke Exposure: Yes service: No Current occupational status: retired Cognitive needs: No Hearing needs: No Vision needs: Yes Questionnaire Thrive Questionnaire Date Thrive assessed: 08/30/23 EDILIA-7 AMB Questionnaire EDILIA-7 Date EDILIA - 7 assessed: 08/30/23 Source: Developed by Drs. Hans Correa, Carley Davalos, Leonel Jackson and colleagues, with an educational reynold from [employer]. Review of Systems Const Denies chills, Denies fatigue, Denies fever(s) and Denies headache(s) ENT Denies dysphagia, Denies dizziness, Denies otalgia, Denies headache(s), Denies neck pain, Denies odynophagia and Denies sore throat Card Denies chest pain, Denies palpitations and Denies dyspnea Resp Denies cough and Denies dyspnea GI Denies abdominal pain, Denies constipation, Denies dysphagia, Denies heartburn, Denies diarrhea, Denies nausea, Denies odynophagia and Denies vomiting Denies difficulty urinating, Denies dysuria, Denies nocturia and Denies urinary frequency Musc Denies neck pain Skin/Breast Denies rash Neuro Denies dizziness and Denies headache(s) Endo Denies fatigue and Denies palpitations Physical exam (Primary Care) Vital Signs: Last Vital Signs Pulse 56 01/02/24 14:01 BP 100/70 01/02/24 14:01 Pulse Ox 98 01/02/24 14:01 Oxygen Delivery Method Room Air 01/02/24 14:01 BMI result Body Mass Index 23.4 Tobacco/Smoking Status: Tobacco use Status Tobacco use date assessed 01/02/24 01/02/24 14:07 Patient Tobacco Use Status Never used Tobacco 01/02/24 13:56 e-Cigarette/Vaping Use Never Used 01/02/24 13:56 Thrive Assessment: Date of Thrive Assessment Date Thrive assessed 08/30/23 01/02/24 13:56 Const General: no acute distress and alert HENMT Other: (+) well healed scar over the right side of the nose and the face Ears: TM's normal bilaterally and EAC's normal Throat: Yes posterior oropharynx normal and Yes tonsils normal (no TP congestion noted) Neck Neck: Yes no lymphadenopathy and Yes supple Thyroid: Thyroid normal Resp Auscultation: clear to auscultation bilaterally, no rales and no wheezes Cardio Rate: regular rate Rhythm: regular rhythm Heart sounds: Murmur heart sound present systolic early, soft, II/ and at the right sternal border (upper sternal border) GI Palpation (GI): Soft to palpation and nontender Auscultation: normal bowel sounds General: Yes no CVA tenderness Back/Spine/Pelvis Back: no CVA tenderness Skin Rashes: no rashes Extrem General: Yes no clubbing, cyanosis or edema Results Reviewed Results Reviewed: Laboratory Tests 12/27/23 12/27/23 12/27/23 11:49 11:59 Unknown WBC 5.8 Hgb 13.5 L Hct 39.4 L Plt Count 146 L Sodium 141 Potassium 4.0 Creatinine 1.28 Estimated GFR 56 Fasting Glucose 72 Hemoglobin A1c % 4.3 Calcium 10.6 H D AST 20 ALT 23 B-Natriuretic Peptide 96 Triglycerides 68 Cholesterol 117 LDL Cholesterol, Calc 69 HDL Cholesterol 35 L Vitamin B12 1899 H 25-OH Vitamin D Total 66.6 TSH 2.05 Ur Specific [place] 1.015 Urine Protein Negative Urine Glucose (UA) Negative Urine Blood Negative Urine Nitrite Negative Ur Leukocyte Esterase Negative Microalb/Creat Ratio 18.5 Assessment and Plan Assessment & Plan (1) Type 2 diabetes mellitus with diabetic polyneuropathy: Code(s): E11.42 - Type 2 diabetes mellitus with diabetic polyneuropathy Qualifiers: Diabetes mellitus joint terminal attack controller insulin use: with half-way use Qualified Code(s): E11.42 - Type 2 diabetes mellitus with diabetic polyneuropathy; Z79.4 - half-way (current) use of insulin Plan: His HgbA1c remains normal at 4.3% on his labs done last week (was at 4.9% a few months ago) - goal is <7.0% Reinforced diabetic diet Continue Toujeo Solostar pen 12 units once a day, NovoLog FlexPen at 3-4 units 3 times a day with meals per sliding scale and Januvia 100 mg QD We tried cutting his Januvia in half to 50 mg QD previously because his HgbA1c has been consistently low BUT he went back to 100 mg QD when his blood sugar readings started going up shortly afterwards He was seeing endocrinology in the past but his prescribing credit review analyst (Kim Pena) left the practice and he is now just seeing us for his diabetes management (2) Mixed hyperlipidemia: Code(s): E78.2 - Mixed hyperlipidemia Plan: Results of his labs done last week reviewed and discussed with patient Reinforced low cholesterol diet Continue Fenofibrate 145 mg QD Will recheck his labs and fasting lipids in 4 months for follow-up (3) Chronic kidney disease, stage 3: Code(s): N18.30 - Chronic kidney disease, stage 3 unspecified Qualifiers: Chronic kidney disease stage 3 subtype: stage 3a (GFR 45-59) Qualified Code(s): N18.31 - Chronic kidney disease, stage 3a Plan: Stable - will continue to monitor GFR and renal function regularly (4) Chronic congestive heart failure: Code(s): I50.9 - Heart failure, unspecified Qualifiers: Heart failure type: unspecified Qualified Code(s): I50.9 - Heart failure, unspecified Plan: Compensated/asymptomatic - reinforced fluid restriction Echocardiogram done in May 2019 showed normal LV systolic function and visually estimated EF was between 60-65%; basal and mid inferior segments are hypokinetic with mild thickening of the aortic valve but no noted. Diastolic dysfunction is also normal for age Continue Digoxin 125 mcg QD and Carvedilol 12.5 mg BID (5) Benign essential hypertension: Code(s): I10 - Essential (primary) hypertension Plan: Reinforced low sodium diet - goal is systolic BP of at least 130 to 140 mm or less Continue Losartan 100 mg QD, Amlodipine 10 mg QD and Hydrochlorothiazide 25 mg 2 tablets QD Patient also takes Potassium Chloride ER tablets 20 mEq once a day as he is on diuretics (6) Chronic inflammatory demyelinating polyneuritis: Code(s): G61.81 - Chronic inflammatory demyelinating polyneuritis Plan: Continue Prednisone 1 mg QD Follow-up with Neurology as scheduled - states that he just sees neurology once a year now (7) Neuropathy: Code(s): G62.9 - Polyneuropathy, unspecified Plan: EMG and NCV done a couple of years ago showed (+) severe sensory and motor chronic peripheral neuropathy affecting the legs - 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 (8) Hypercalcemia: Code(s): E83.52 - Hypercalcemia Plan: His serum calcium level went up to 10.6 on his labs done last week - was previously normal at 9.8 a few months ago Follow up with endocrinology as scheduled (9) Allergic rhinitis: Code(s): J30.9 - Allergic rhinitis, unspecified Qualifiers: Allergic rhinitis trigger: unspecified Allergic rhinitis seasonality: unspecified Qualified Code(s): J30.9 - Allergic rhinitis, unspecified Plan: Continue Fluticasone propionate nasal spray QD PRN (10) 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 Plan: Continue Folic acid 1 mg QD - was started by one of his other doctors a couple of years ago as he was told that his homocysteine level came back very high Homocyteine level was elevated at 25.6 when rechecked recently (11) Elevated vitamin B12 level: Code(s): R74.8 - Abnormal levels of other serum enzymes Plan: He is advised that his B12 level remains significantly elevated on his recent labs He currently is still taking Vitamin B12 1000 mcg QD Will have him cut back on this to just a couple of times a week for now Will recheck his Vitamin B12 level in 4 months for follow up (12) Melanoma: Code(s): C43.9 - Malignant melanoma of skin, unspecified Qualifiers: Melanoma location: nose Qualified Code(s): 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 Panel Fast 4 Months E78.00 - Pure hypercholesterolemia, unspecified Microalbumin, Random (w Creat) 4 Months E11.9 - Type 2 diabetes mellitus without complications UA CC w/rflx Micro + Cult 4 Months R30.0 - Dysuria Lipid Panel 4 Months E78.00 - Pure hypercholesterolemia, unspecified Hemoglobin A1c 4 Months E11.9 - Type 2 diabetes mellitus without complications TSH reflex Free T4 4 Months E78.00 - Pure hypercholesterolemia, unspecified Vitamin B12 and Folate 4 Months E53.8 - Deficiency of other specified B group vitamins Vitamin D 25-OH Total 4 Months E55.9 - Vitamin D deficiency, unspecified Medications: Refilled clonazepam 0.5 mg (1/2 x 1 mg) PO BID 30 days 30 tabs 2RF anxiety Coding Level of Care Code Est Pt Level 4 (63085) Complex EM visit Add On G2211 Diagnoses Type 2 diabetes mellitus with diabetic polyneuropathy, with long-term current use of insulin E11.42; Z79.4 Diabetes mellitus half-way insulin use: with joint terminal attack controller use Mixed hyperlipidemia E78.2 Stage 3a chronic kidney disease N18.31 Chronic kidney disease stage 3 subtype: stage 3a (GFR 45-59) Chronic congestive heart failure, unspecified heart failure type I50.9 Heart failure type: unspecified Benign essential hypertension I10 Chronic inflammatory demyelinating polyneuritis G61.81 Neuropathy G62.9 Hypercalcemia E83.52 Allergic rhinitis, unspecified seasonality, unspecified trigger J30.9 Allergic rhinitis trigger: unspecified Allergic rhinitis seasonality: unspecified 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 Elevated vitamin B12 level R74.8 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 Melanoma location: nose Anxiety F41.9
[2024-01-02 14:01] VITALS: BP 100/70; PULSE 56; O2SAT 98; BMI 23.4
== END 2024-01-02 15:07 | disposition home or self-care (01) ==
PROVIDERS: PCP Internal Medicine; Visit Provider Internal Medicine
DX: E11.42 Type 2 diabetes mellitus with diabetic polyneuropathy (principal); I13.0 Hypertensive heart and chronic kidney disease with heart failure and stage 1 through stage 4 chronic kidney disease, or unspecified chronic kidney disease; N18.31 Chronic kidney disease, stage 3a; I50.9 Heart failure, unspecified; E78.2 Mixed hyperlipidemia; G61.81 Chronic inflammatory demyelinating polyneuritis; G62.9 Polyneuropathy, unspecified; E83.52 Hypercalcemia; J30.9 Allergic rhinitis, unspecified; E72.11 Homocystinuria; R74.8 Abnormal levels of other serum enzymes; C43.31 Malignant melanoma of nose; F41.9 Anxiety disorder, unspecified
CPT/HCPCS: 99214; G2211

== ENCOUNTER 2024-05-01 12:58 | Outpatient (REF) | payer MEDICARE, SELFPAY ==
[2024-05-01 13:15] LABS: MANUAL DIFF FLAG NO
[2024-05-01 14:06] LABS: Basophils Absolute Auto 0.1 X10*3/uL (0.0-0.2); Basophils Percent Auto 0.9 % (0-2); Eosinophils Absolute Auto 0.2 X10*3/uL (0.0-0.4); Eosinophils Percent Auto 2.9 % (0-4); Hematocrit 40.4 % (42.0-52.0); Hemoglobin 13.6 g/dl (14.0-18.0); Imm Gran Abs Auto 0.11 X10*3/uL (0.00-0.03); Imm Gran Pct Auto 1.9 % (0.0-0.4); Lymphocytes Absolute Auto 1.1 X10*3/uL (1.2-4.9); Lymphocytes Percent Auto 19.8 % (20-40); Mean Corpuscular HGB Conc 33.7 g/dl (31.0-36.0); Mean Corpuscular Hemoglobin 30.8 pg (27.0-33.0); Mean Corpuscular Volume 91.6 fL (80.0-98.0); Mean Platelet Volume 9.4 fL (9.4-12.4); Monocytes Absolute Auto 0.8 X10*3/uL (0.1-1.2); Monocytes Percent Auto 13.7 % (2-11); Neutrophils Absolute Auto 3.5 x10*3/uL (2.0-8.3); Neutrophils Percent Auto 60.8 % (45-73); Platelet Count 160 X10*3/uL (160-400); Red Blood Count 4.41 X10*6/uL (4.60-5.80); Red Cell Distribution Width 14.1 % (11.0-16.0); White Blood Count 5.8 X10*3/uL (4.8-10.8)
[2024-05-01 14:09] LABS: Appearance Urine Clear; Color Urine Yellow; Glucose Urine UA Negative (Negative); Leukocyte Esterase Urine Negative (Negative); Nitrite Urine Negative (Negative); PH 5.5 (5.0-9.0); Urine Blood Negative (Negative); Urine Ketones Negative (Negative); Urine Protein Negative (Neg-Trace)
[2024-05-01 14:15] LABS: Estimated Average Glucose 88 mg/dL; Hemoglobin A1C 96.2157 umol/L; Hemoglobin A1c % 4.7 % (<6.0); Total Hemoglobin (HGBA1C) 3476.7305 umol/L
[2024-05-01 14:28] LABS: Creatinine Urine 28.91 mg/dL; Microalbum/Creatinine Ratio Ur 27.6 ug/mg cr (<30)
[2024-05-01 14:30] LABS: Alanine Aminotransferase 39 U/L (0-40); Albumin Level 4.7 g/dL (3.5-5.0); Alkaline Phosphatase 47 U/L (39-117); Anion Gap 13 (12-20); Aspartate Amino Transferase 34 U/L (5-37); Bilirubin Total 0.8 mg/dL (0.0-1.0); Blood Urea Nitrogen 65 mg/dL (9-16); Carbon Dioxide 27 mmol/L (22-29); Chloride 101 mmol/L (96-108); Cholesterol 105 mg/dL (<200); Estimated Glomerular Filt Rate 48; Glucose Fasting 101 mg/dL (60-99); HDL Cholesterol 30 mg/dL (>40); LDL Cholesterol Calculated 62 mg/dL (<100); Potassium 4.6 mmol/L (3.3-5.1); Sodium 136 mmol/L (135-145); Triglycerides 68 mg/dL (<150)
[2024-05-01 14:45] LABS: Vitamin D 25-OH Total 58.7 ng/mL (>30)
[2024-05-01 15:04] LABS: Folate > 20.0 ng/mL (> or = 4.0); Vitamin B12 997 pg/mL (200-900)
== END 2024-05-01 12:59 | disposition home or self-care (01) ==
LOC: HO.LAB 12:58
PROVIDERS: PCP Internal Medicine; Visit Provider Internal Medicine
DX: D64.9 Anemia, unspecified (principal); E78.00 Pure hypercholesterolemia, unspecified; E11.9 Type 2 diabetes mellitus without complications; R30.0 Dysuria; E53.8 Deficiency of other specified B group vitamins; E55.9 Vitamin D deficiency, unspecified
CPT/HCPCS: 36415; 80053; 80061; 81003; 82043; 82306; 82570; 82607; 82746; 83036; 84443; 85025

== ENCOUNTER 2024-05-08 13:41 | Outpatient (AMB) | payer MEDICARE, SELFPAY ==
[2024-05-08 13:44] VITALS: BP 118/64; PULSE 64; O2SAT 98; BMI 24.0
--- NOTE | 2024-05-08 13:44 | A.OFFPC_ITS ---
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 Required: No Accompanied by: Self / Same As Patient Allergies atenolol [ATENOLOL] Allergy (Severe, Verified 05/08/24 13:58) ANAPHYLAXIS, anaphya=laxis pollen Allergy (Unknown, Uncoded 05/08/24 13:58) rhinitis Medication List - Last Reconciled 05/08/24 by Max Alonso MD amlodipine 10 mg PO DAILY 30 days atorvastatin 10 mg PO BEDTIME 30 days blood sugar diagnostic ([employer] Precision Marcelo Strips) As directed carvedilol 12.5 mg PO BID clonazepam 0.5 mg (1/2 x 1 mg) PO BID 30 days digoxin 125 mcg PO DAILY fenofibrate nanocrystallized 145 mg PO DAILY flash glucose scanning reader As directed flash glucose sensor ([employer] Sherice 14 Day Sensor kit) As directed fluticasone propionate 50 mcg/actuation 1 spray intranasal DAILY PRN hydrochlorothiazide 50 mg (2 x 25 mg) PO DAILY insulin aspart U-100 (Novolog FlexPen U-100 Insulin aspart) 3 - 4 units (0.03 - 0.04 mL) subcut TID lancets As directed losartan 100 mg PO DAILY pen needle, diabetic (BD Alba 2nd Gen Pen Needle) 1 ea miscellaneous QID potassium chloride ER 20 mEq PO DAILY prednisone 1 mg PO DAILY sitagliptin phosphate (Januvia) 100 mg PO DAILY Toujeo Max U-300 SoloStar (insulin glargine U-300 conc) 18 units (0.06 mL) subcut BEDTIME NS Tobacco use date assessed: 05/08/24 Fall risk assessment: No Falls in past year Last assessed Fall Risk: 05/08/24 Dental Screening Dental Screen Date: 05/08/24 Did you have a dental visit in the last 12 months?: No Did you have a dental problem in the last 6 months where you did not have access to dental care?: No Was dental information given to patient?: Patient has dentist HPI 4 Month F/U HPI Details Patient comes in today for his follow up visit States that he feels okay He denies any headaches or dizziness Denies any chest pains, no SOB No nausea/vomiting, no abdominal pain No change in bowel habits noted He had his follow up labs done last week - to discuss his results [facility] Medical History Anxiety Prostate cancer screening Overweight (BMI 25.0-29.9) Allergic rhinitis Hypercalcemia Neuropathy Mixed hyperlipidemia Benign essential hypertension Chronic congestive heart failure Chronic inflammatory demyelinating polyneuritis GERD (gastroesophageal reflux disease) RLS (restless legs syndrome) CHF (congestive heart failure) Chronic kidney disease, stage 3 Type 2 diabetes mellitus with diabetic polyneuropathy Essential hypertension Hypertriglyceridemia Type 2 diabetes mellitus with chronic kidney disease Surgical History Status post Mohs surgery History of plastic surgery History of nasal surgery History of bronchoscopy Hx of removal of cyst Hx of cardiac catheterization Hx of hand surgery Hx of bilateral inguinal hernia repair Hx of tonsillectomy Family History Father Smoker Diabetes Hypertension Mother Smoker Asthma Emphysema, unspecified Social History Household Members Other:: Sister Housing: House Alcohol intake: never Patient Tobacco Use Status: Never used Tobacco e-Cigarette/Vaping Use: Never Used Second Hand Smoke Exposure: Yes service: No Current occupational status: retired Cognitive needs: No Hearing needs: No Vision needs: Yes Questionnaire PHQ-9 Over the last 2 weeks, how often have you been bothered by any of the following problems? 1. Little interest or pleasure in doing things: not at all 2. Feeling down, depressed, or hopeless: not at all 3. Trouble falling or staying asleep, or sleeping too much: not at all 4. Feeling tired or having little energy: not at all 5. Poor appetite or overeating: not at all 6. Feeling bad about yourself - or that you are a failure or have let yourself or your family down: not at all 7. Trouble concentrating on things, such as reading the newspaper or watching television: not at all 8. Moving or speaking so slowly that other people could have noticed. Or the opposite - being so fidgety or restless that you have been moving around a lot more than usual: not at all 9. Thoughts that you would be better off or of hurting yourself in some way: not at all Total score: 0 Depression Screening Interpretation: Negative Depression Screening Done: Yes 47122 - PHQ-9 Billing: Yes Source: Developed by Drs. Hans Correa, Carley Davalos, Leonel Jackson and colleagues, with an educational reynold from [employer]. Thrive Questionnaire Date Thrive assessed: 05/08/24 I am a: Patient What is your living situation today?: I have a steady place to live Within the past 12 months, did the food you bought not last and you didn't have the money to get more?: Never true Within the past 12 months, did you worry whether your food would run out before you got money to buy more?: Never true Do you have trouble paying for medicines?: No Do you have trouble getting transportation to medical appointments?: No Do you have trouble paying your heating and electricity bill?: No Do you have trouble taking care of your child, family member or friend?: No Do you have trouble with day-to-day activities such as bathing, preparing meals, shopping, managing finances, etc.?: No Are you currently unemployed and looking for a job?: No Are you interested in more education?: No Please select the resources that you would like help with: None Currently or been in a relationship where the following occur: No concerns reported THRIVE Score: 0 AUDIT C Alcohol Use Questionnaire (AUDIT-C) 2. How many drinks containing alcohol do you have on a typical day when you are drinking?: 1 or 2 3. How often do you have six or more drinks on one occasion?: Never Total Score: 0 Score Reviewed/Action Taken: Yes EDILIA-7 AMB Questionnaire EDILIA-7 Date EDILIA - 7 assessed: 05/08/24 Feeling nervous, anxious, or on edge: 0 = Not at all Not being able to stop or control worryin = Not at all Worrying too much about different things: 0 = Not at all Trouble relaxin = Not at all Being so restless that it is hard to sit still: 0 = Not at all Becoming easily annoyed or irritable: 0 = Not at all Feeling afraid as if something awful might happen: 0 = Not at all Total EDILIA-7 score (0-4 normal; 5-9 mild; 10-14 moderate; 15-21 severe): 0 Source: Developed by Drs. Hans Correa, Carley Davalos, Leonel Jackson and colleagues, with an educational reynold from [employer]. Review of Systems Const Denies chills, Denies fatigue, Denies fever(s) and Denies headache(s) ENT Denies dysphagia, Denies dizziness, Denies otalgia, Denies headache(s), Denies neck pain, Denies odynophagia and Denies sore throat Card Denies chest pain, Denies palpitations and Denies dyspnea Resp Denies cough and Denies dyspnea GI Denies abdominal pain, Denies constipation, Denies dysphagia, Denies heartburn, Denies diarrhea, Denies nausea, Denies odynophagia and Denies vomiting Denies difficulty urinating, Denies dysuria, Denies nocturia and Denies urinary frequency Musc Denies back pain and Denies neck pain Skin/Breast Denies rash Neuro Denies dizziness and Denies headache(s) Endo Denies fatigue and Denies palpitations Physical exam (Primary Care) Vital Signs: Last Vital Signs Pulse 64 05/08/24 13:44 BP 118/64 05/08/24 13:44 Pulse Ox 98 05/08/24 13:44 Oxygen Delivery Method Room Air 05/08/24 13:44 BMI result Body Mass Index 24.0 Tobacco/Smoking Status: Tobacco use Status Tobacco use date assessed 05/08/24 05/08/24 13:54 Patient Tobacco Use Status Never used Tobacco 05/08/24 13:54 e-Cigarette/Vaping Use Never Used 05/08/24 13:54 PHQ-9: PHQ-9 Score PHQ-9: Total score 0 05/08/24 14:02 Depression Screening Interpretation: Negative Thrive Assessment: Date of Thrive Assessment Date Thrive assessed 05/08/24 05/08/24 13:54 Currently or been in a relationship where the following occur: No concerns reported Const General: no acute distress and alert HENMT Ears: TM's normal bilaterally and EAC's normal Throat: Yes posterior oropharynx normal and Yes tonsils normal (no TP congestion noted) Neck Neck: Yes no lymphadenopathy and Yes supple Thyroid: Thyroid normal Resp Auscultation: clear to auscultation bilaterally, no rales and no wheezes Cardio Rate: regular rate Rhythm: regular rhythm Heart sounds: Murmur heart sound present systolic early, soft, II/ and at the right sternal border (upper sternal border) GI Palpation (GI): Soft to palpation and nontender Auscultation: normal bowel sounds General: Yes no CVA tenderness Back/Spine/Pelvis Back: no CVA tenderness Skin Rashes: no rashes Extrem General: Yes no clubbing, cyanosis or edema Results Reviewed Results Reviewed: Laboratory Tests 05/01/24 05/01/24 13:08 13:10 WBC 5.8 Hgb 13.6 L Hct 40.4 L Plt Count 160 Sodium 136 Potassium 4.6 Creatinine 1.45 H Estimated GFR 48 Fasting Glucose 101 H Hemoglobin A1c % 4.7 Calcium 10.0 AST 34 ALT 39 Triglycerides 68 Cholesterol 105 LDL Cholesterol, Calc 62 HDL Cholesterol 30 L Vitamin B12 997 H 25-OH Vitamin D Total 58.7 TSH 3.00 Ur Specific Antelope 1.010 Urine Protein Negative Urine Glucose (UA) Negative Urine Blood Negative Urine Nitrite Negative Ur Leukocyte Esterase Negative Microalb/Creat Ratio 27.6 Coding Level of Care Code Est Pt Level 4 (44675) Complex EM visit Add On G2211 Diagnoses Type 2 diabetes mellitus with diabetic polyneuropathy, with long-term current use of insulin E11.42; Z79.4 Diabetes mellitus extermination inspector insulin use: with senior care use Mixed hyperlipidemia E78.2 Stage 3a chronic kidney disease N18.31 Chronic kidney disease stage 3 subtype: stage 3a (GFR 45-59) Chronic congestive heart failure, unspecified heart failure type I50.9 Heart failure type: unspecified Essential hypertension I10 Chronic inflammatory demyelinating polyneuritis G61.81 Hypercalcemia E83.52 Allergic rhinitis, unspecified seasonality, unspecified trigger J30.9 Allergic rhinitis seasonality: unspecified Allergic rhinitis trigger: unspecified 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 Elevated vitamin B12 level R74.8 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 Melanoma location: nose Anxiety F41.9 Additional Codes PHQ-9 - 27487 - PHQ-9 Billing: Yes ([id number]) Assessment & Plan Assessment & Plan (1) Type 2 diabetes mellitus with diabetic polyneuropathy: Code(s): E11.42 - Type 2 diabetes mellitus with diabetic polyneuropathy Category: Medical Qualifiers: Diabetes mellitus extermination inspector insulin use: with senior care use Qualified Code(s): E11.42 - Type 2 diabetes mellitus with diabetic polyneuropathy; Z79.4 - assisted (current) use of insulin Plan: His HgbA1c remains normal at 4.7% on his labs done last week (was previously at 4.3% a few months ago) - goal is <7.0% Reinforced diabetic diet Continue Toujeo Solostar pen 12 units once a day, NovoLog FlexPen at 3-4 units 3 times a day with meals per sliding scale and Januvia 100 mg QD We tried cutting his Januvia in half to 50 mg QD previously because his HgbA1c has been consistently low BUT he went back to 100 mg QD when his blood sugar readings started going up shortly afterwards He was seeing endocrinology in the past but his prescribing shipping room helper (Kim Pena) left the practice and he is now just seeing us for his diabetes management (2) Mixed hyperlipidemia: Code(s): E78.2 - Mixed hyperlipidemia Category: Medical Plan: Results of his labs done last week reviewed and discussed with patient Reinforced low cholesterol diet Continue Fenofibrate 145 mg QD Will recheck his labs and fasting lipids in 4 months for follow-up (3) Chronic kidney disease, stage 3: Code(s): N18.30 - Chronic kidney disease, stage 3 unspecified Category: Medical Qualifiers: Chronic kidney disease stage 3 subtype: stage 3a (GFR 45-59) Qualified Code(s): N18.31 - Chronic kidney disease, stage 3a Plan: His renal function has been stable for a while now but his serum creatinine and GFR appears to have dropped off slightly on his recent labs Will continue to monitor GFR and renal function regularly (4) Chronic congestive heart failure: Code(s): I50.9 - Heart failure, unspecified Category: Medical Qualifiers: Heart failure type: unspecified Qualified Code(s): I50.9 - Heart failure, unspecified Plan: Compensated/asymptomatic - reinforced fluid restriction His echocardiogram last done in May 2019 showed normal LV systolic function and visually estimated EF was between 60-65%; basal and mid inferior segments are hypokinetic with mild thickening of the aortic valve but no noted. Diastolic dysfunction is also normal for age Continue Digoxin 125 mcg QD and Carvedilol 12.5 mg BID (5) Essential hypertension: Code(s): I10 - Essential (primary) hypertension Category: Medical Plan: Reinforced low sodium diet - goal is systolic BP of at least 130 to 140 mm or less Continue Losartan 100 mg QD, Amlodipine 10 mg QD and Hydrochlorothiazide 25 mg 2 tablets QD Patient also takes Potassium Chloride ER tablets 20 mEq once a day for potassium supplementation as he is on diuretics (6) Chronic inflammatory demyelinating polyneuritis: Code(s): G61.81 - Chronic inflammatory demyelinating polyneuritis Category: Medical Plan: EMG and NCV done a couple of years ago showed (+) severe sensory and motor chronic peripheral neuropathy affecting the legs - 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 Continue Prednisone 1 mg QD Follow-up with Neurology as scheduled - states that he just sees neurology once a year now (7) Hypercalcemia: Code(s): E83.52 - Hypercalcemia Category: Medical Plan: His serum calcium level was normal at 10.0 on his labs done last week - was previously up at 10.6 a few months ago Follow up with endocrinology as scheduled (8) Allergic rhinitis: Code(s): J30.9 - Allergic rhinitis, unspecified Category: Medical Qualifiers: Allergic rhinitis seasonality: unspecified Allergic rhinitis trigger: unspecified Qualified Code(s): J30.9 - Allergic rhinitis, unspecified Plan: Continue Fluticasone propionate nasal spray QD PRN (9) 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 Category: Medical Plan: Continue Folic acid 1 mg QD - was started by one of his other doctors a couple of years ago as he was told that his homocysteine level came back very high Homocysteine level was elevated at 25.6 when rechecked recently (10) Elevated vitamin B12 level: Code(s): R74.8 - Abnormal levels of other serum enzymes Category: Medical Plan: He is advised that his B12 level remains slightly elevated on his recent labs although it has come down a lot from previous He is currently not taking Vitamin B12 1000 mcg; we did advise him previously to cut this back to just a couple of times a week but he ended up stopping it completely Will have him start back on this at just once a week for now Will recheck his Vitamin B12 level in 4 months for follow up (11) Melanoma: Code(s): C43.9 - Malignant melanoma of skin, unspecified Category: Medical Qualifiers: Melanoma location: nose Qualified Code(s): C43.31 - Malignant melanoma of nose Plan: S/P Moh's excision surgery a few months ago - his facial and nasal wounds currently appear well-healed with only minimal scarring noted He continues to follow up with dermatology regularly for continuing surveillance (12) Anxiety: Code(s): F41.9 - Anxiety disorder, unspecified Category: Medical Plan: Continue Clonazepam 0.5 mg BID PRN Plan Follow up in 4 months Orders: Orders Lipid Panel 4 Months E78.00 - Pure hypercholesterolemia, unspecified TSH reflex Free T4 4 Months E78.00 - Pure hypercholesterolemia, unspecified UA CC w/rflx Micro + Cult 4 Months R30.0 - Dysuria Digoxin 4 Months I50.20 - Unspecified systolic (congestive) heart failure Microalbumin, Random (w Creat) 4 Months E11.9 - Type 2 diabetes mellitus without complications Complete Blood Count Auto Diff 4 Months D64.9 - Anemia, unspecified Comprehensive Fields. Panel Fast 4 Months E78.00 - Pure hypercholesterolemia, unspecified Vitamin D 25-OH Total 4 Months E55.9 - Vitamin D deficiency, unspecified Vitamin B12 and Folate 4 Months E53.8 - Deficiency of other specified B group vitamins Hemoglobin A1c 4 Months E11.9 - Type 2 diabetes mellitus without complications
== END 2024-05-08 14:38 | disposition home or self-care (01) ==
PROVIDERS: PCP Internal Medicine; Visit Provider Internal Medicine
DX: E11.42 Type 2 diabetes mellitus with diabetic polyneuropathy (principal); I11.0 Hypertensive heart disease with heart failure; N18.31 Chronic kidney disease, stage 3a; G61.81 Chronic inflammatory demyelinating polyneuritis; Z79.4 Long term (current) use of insulin; C43.31 Malignant melanoma of nose; E72.11 Homocystinuria; E78.2 Mixed hyperlipidemia; E83.52 Hypercalcemia; J30.9 Allergic rhinitis, unspecified; R74.8 Abnormal levels of other serum enzymes

== ENCOUNTER → 2024-05-08 13:41 | Outpatient (BNVA) | payer MEDICARE, SELFPAY | PROVIDERS: PCP Internal Medicine; Visit Provider Internal Medicine | DX: E11.42 Type 2 diabetes mellitus with diabetic polyneuropathy (principal); Z79.4 Long term (current) use of insulin; E78.2 Mixed hyperlipidemia; I13.0 Hypertensive heart and chronic kidney disease with heart failure and stage 1 through stage 4 chronic kidney disease, or unspecified chronic kidney disease; E11.22 Type 2 diabetes mellitus with diabetic chronic kidney disease; N18.31 Chronic kidney disease, stage 3a; I50.9 Heart failure, unspecified; E83.52 Hypercalcemia; G61.81 Chronic inflammatory demyelinating polyneuritis; E72.11 Homocystinuria; R74.8 Abnormal levels of other serum enzymes; C43.31 Malignant melanoma of nose | CPT/HCPCS: 96127; 99212 ==

== ENCOUNTER 2024-09-07 11:59 | Outpatient (REF) | payer MEDICARE, SELFPAY ==
[2024-09-07 12:21] LABS: MANUAL DIFF FLAG NO
[2024-09-07 12:51] LABS: Basophils Absolute Auto 0.1 X10*3/uL (0.0-0.2); Eosinophils Absolute Auto 0.2 X10*3/uL (0.0-0.4); Eosinophils Percent Auto 3.1 % (0-4); Hematocrit 39.4 % (42.0-52.0); Hemoglobin 13.6 g/dl (14.0-18.0); Imm Gran Pct Auto 1.6 % (0.0-0.4); Lymphocytes Absolute Auto 1.2 X10*3/uL (1.2-4.9); Lymphocytes Percent Auto 19.5 % (20-40); Mean Corpuscular HGB Conc 34.5 g/dl (31.0-36.0); Mean Corpuscular Hemoglobin 30.8 pg (27.0-33.0); Mean Corpuscular Volume 89.3 fL (80.0-98.0); Mean Platelet Volume 9.3 fL (9.4-12.4); Monocytes Absolute Auto 0.7 X10*3/uL (0.1-1.2); Neutrophils Percent Auto 63.8 % (45-73); Platelet Count 172 X10*3/uL (160-400); Red Blood Count 4.41 X10*6/uL (4.60-5.80); Red Cell Distribution Width 14.7 % (11.0-16.0); White Blood Count 6.2 X10*3/uL (4.8-10.8)
[2024-09-07 12:59] LABS: Estimated Average Glucose 91 mg/dL; Hemoglobin A1C 102.4565 umol/L; Hemoglobin A1c % 4.8 % (<6.0); Total Hemoglobin (HGBA1C) 3582.8175 umol/L
[2024-09-07 13:25] LABS: Appearance Urine Clear; Color Urine Yellow; Glucose Urine UA Negative (Negative); Leukocyte Esterase Urine Negative (Negative); Nitrite Urine Negative (Negative); PH 5.5 (5.0-9.0); Specific Gravity - Urine 1.015 (1.005-1.025); Urine Blood Negative (Negative); Urine Ketones Negative (Negative); Urine Protein Negative (Neg-Trace)
[2024-09-07 13:33] LABS: Digoxin 0.8 ng/mL (0.8-2.0)
[2024-09-07 13:42] LABS: Alanine Aminotransferase 34 U/L (0-40); Albumin Level 4.7 g/dL (3.5-5.0); Alkaline Phosphatase 44 U/L (39-117); Anion Gap 11 (12-20); Aspartate Amino Transferase 27 U/L (5-37); Bilirubin Total 0.9 mg/dL (0.0-1.0); Blood Urea Nitrogen 68 mg/dL (9-16); Calcium 9.9 mg/dL (8.4-10.2); Carbon Dioxide 27 mmol/L (22-29); Chloride 106 mmol/L (96-108); Cholesterol 111 mg/dL (<200); Estimated Glomerular Filt Rate 52; Glucose Fasting 102 mg/dL (60-99); HDL Cholesterol 30 mg/dL (>40); LDL Cholesterol Calculated 65 mg/dL (<100); Potassium 4.1 mmol/L (3.3-5.1); Sodium 140 mmol/L (135-145); Total Protein 7.1 g/dL (6.5-8.0); Triglycerides 81 mg/dL (<150)
[2024-09-07 13:53] LABS: Microalbum/Creatinine Ratio Ur 21.2 ug/mg cr (<30)
[2024-09-07 14:00] LABS: TSH reflex Free T4 2.16 uIU/mL (0.32-4.0); Vitamin D 25-OH Total 45.8 ng/mL (>30)
[2024-09-07 14:06] LABS: Folate > 20.0 ng/mL (> or = 4.0); Vitamin B12 1108 pg/mL (200-900)
== END 2024-09-07 12:00 | disposition home or self-care (01) ==
LOC: HO.LAB 11:59
PROVIDERS: PCP Internal Medicine; Visit Provider Internal Medicine
DX: E78.00 Pure hypercholesterolemia, unspecified (principal); I11.0 Hypertensive heart disease with heart failure; I50.20 Unspecified systolic (congestive) heart failure; E11.9 Type 2 diabetes mellitus without complications; D64.9 Anemia, unspecified; E55.9 Vitamin D deficiency, unspecified; R30.0 Dysuria; E53.8 Deficiency of other specified B group vitamins
CPT/HCPCS: 36415; 80053; 80061; 80162; 81003; 82043; 82306; 82570; 82607; 82746; 83036; 84443; 85025

== ENCOUNTER 2024-09-11 14:10 | Outpatient (AMB) | payer MEDICARE, SELFPAY ==
--- NOTE | 2024-09-11 14:13 | MHC.PC.OV ---
Vital Signs 09/11/24 14:14 Height 5 ft 8.5 in Weight 163 lb BMI 24.4 BP 112/80 Blood Pressure Location Lt brachial Position Sitting Pulse 49 L Pulse Source Pulse Oximeter Pulse Oximetry (%) 99 Oxygen Delivery Method Room Air Intake Visit Reasons: hyperlipidemia, DM, CIDP, HTN, CKD, neuropathy Fire Adjuster Required: No Accompanied by: Self / Same As Patient Allergies atenolol [ATENOLOL] Allergy (Severe, Verified 09/11/24 14:45) ANAPHYLAXIS, anaphya=laxis pollen Allergy (Unknown, Uncoded 09/11/24 14:45) rhinitis Medication List - Last Reconciled 09/11/24 by Max Alonso MD amlodipine 10 mg PO DAILY 30 days atorvastatin 10 mg PO BEDTIME 30 days blood sugar diagnostic (FreeStyle Precision Marcelo Strips) As directed carvedilol 12.5 mg PO BID clonazepam 0.5 mg (1/2 x 1 mg) PO BID 30 days digoxin 125 mcg PO DAILY diosmin complex no.1 (Vasculera) 1 tab PO DAILY emollient combination no.43 (Promiseb topical cream) appl topical fenofibrate nanocrystallized 145 mg PO DAILY flash glucose scanning reader As directed flash glucose sensor (FreeStyle Sherice 14 Day Sensor kit) As directed fluticasone propionate 50 mcg/actuation 1 spray intranasal DAILY PRN hydrochlorothiazide 50 mg (2 x 25 mg) PO DAILY insulin aspart U-100 (Novolog FlexPen U-100 Insulin aspart) 3 - 4 units (0.03 - 0.04 mL) subcut TID lancets As directed losartan 100 mg PO DAILY pen needle, diabetic (BD Alba 2nd Gen Pen Needle) 1 ea miscellaneous QID potassium chloride ER 20 mEq PO DAILY prednisone 1 mg PO DAILY sitagliptin phosphate (Januvia) 100 mg PO DAILY Toujeo Max U-300 SoloStar (insulin glargine U-300 conc) 18 units (0.06 mL) subcut BEDTIME NS Tobacco use date assessed: 09/11/24 Fall risk assessment: 2 + Falls in past year Last assessed Fall Risk: 09/11/24 Dental Screening Dental Screen Date: 09/11/24 Did you have a dental visit in the last 12 months?: Yes Did you have a dental problem in the last 6 months where you did not have access to dental care?: No Was dental information given to patient?: Patient has dentist HPI hyperlipidemia, DM, CIDP, HTN, CKD, neuropathy HPI Details Patient comes in today for his follow up visit States that he feels okay He denies any headaches or dizziness Denies any chest pains, no SOB No nausea/vomiting, no abdominal pain No change in bowel habits noted He had his follow up labs done a few days ago - to discuss his results [facility] Medical History (Updated 09/16/24 @ 23:50 by Max Alonso MD) Anxiety Overweight (BMI 25.0-29.9) Allergic rhinitis Hypercalcemia Neuropathy Mixed hyperlipidemia Benign essential hypertension Chronic congestive heart failure Chronic inflammatory demyelinating polyneuritis GERD (gastroesophageal reflux disease) RLS (restless legs syndrome) CHF (congestive heart failure) Chronic kidney disease, stage 3 Type 2 diabetes mellitus with diabetic polyneuropathy Essential hypertension Hypertriglyceridemia Type 2 diabetes mellitus with chronic kidney disease Surgical History Status post Mohs surgery History of plastic surgery History of nasal surgery History of bronchoscopy Hx of removal of cyst Hx of cardiac catheterization Hx of hand surgery Hx of bilateral inguinal hernia repair Hx of tonsillectomy Family History Father Smoker Diabetes Hypertension Mother Smoker Asthma Emphysema, unspecified Social History Household Members Other:: Sister Housing: House Alcohol intake: never Patient Tobacco Use Status: Never used Tobacco e-Cigarette/Vaping Use: Never Used Second Hand Smoke Exposure: Yes service: No Current occupational status: retired Cognitive needs: No Hearing needs: No Vision needs: Yes Questionnaire PHQ-9 Over the last 2 weeks, how often have you been bothered by any of the following problems? 1. Little interest or pleasure in doing things: not at all 2. Feeling down, depressed, or hopeless: not at all 3. Trouble falling or staying asleep, or sleeping too much: not at all 4. Feeling tired or having little energy: not at all 5. Poor appetite or overeating: not at all 6. Feeling bad about yourself - or that you are a failure or have let yourself or your family down: not at all 7. Trouble concentrating on things, such as reading the newspaper or watching television: not at all 8. Moving or speaking so slowly that other people could have noticed. Or the opposite - being so fidgety or restless that you have been moving around a lot more than usual: not at all 9. Thoughts that you would be better off or of hurting yourself in some way: not at all Total score: 0 Depression Screening Interpretation: Negative Depression Screening Done: Yes 68125 - PHQ-9 Billing: Yes Source: Developed by Drs. Hnas Correa, Carley Davalos, Leonel Jackson and colleagues, with an educational reynold from [employer] ([employer]). Thrive Questionnaire Date Thrive assessed: 09/11/24 I am a: Patient What is your living situation today?: I have a steady place to live Within the past 12 months, did the food you bought not last and you didn't have the money to get more?: Never true Within the past 12 months, did you worry whether your food would run out before you got money to buy more?: Never true Do you have trouble paying for medicines?: No Do you have trouble getting transportation to medical appointments?: No Do you have trouble paying your heating and electricity bill?: No Do you have trouble taking care of your child, family member or friend?: No Do you have trouble with day-to-day activities such as bathing, preparing meals, shopping, managing finances, etc.?: No Are you currently unemployed and looking for a job?: No Are you interested in more education?: No Please select the resources that you would like help with: None Currently or been in a relationship where the following occur: No concerns reported THRIVE Score: 0 AUDIT C Alcohol Use Questionnaire (AUDIT-C) 1. How often do you have a drink containing alcohol?: Never 3. How often do you have six or more drinks on one occasion?: Never Total Score: 0 Score Reviewed/Action Taken: Yes EDILIA-7 AMB Questionnaire EDILIA-7 Date EDILIA - 7 assessed: 09/11/24 Feeling nervous, anxious, or on edge: 0 = Not at all Not being able to stop or control worryin = Not at all Worrying too much about different things: 0 = Not at all Trouble relaxin = Not at all Being so restless that it is hard to sit still: 0 = Not at all Becoming easily annoyed or irritable: 0 = Not at all Feeling afraid as if something awful might happen: 0 = Not at all Total EDILIA-7 score (0-4 normal; 5-9 mild; 10-14 moderate; 15-21 severe): 0 Source: Developed by Drs. Hans Correa, Carley Davalos, Leonel Jackson and colleagues, with an educational reynold from [employer] ([employer]). Review of Systems Const Denies chills, Denies fatigue, Denies fever(s) and Denies headache(s) ENT Denies dysphagia, Denies dizziness, Denies otalgia, Denies headache(s), Denies neck pain, Denies odynophagia and Denies sore throat Card Denies chest pain, Denies palpitations and Denies dyspnea Resp Denies chest congestion, Denies cough and Denies dyspnea GI Denies abdominal pain, Denies constipation, Denies dysphagia, Denies heartburn, Denies diarrhea, Denies nausea, Denies odynophagia and Denies vomiting Denies difficulty urinating, Denies dysuria, Denies nocturia and Denies urinary frequency Musc Denies back pain, Denies arthralgias and Denies neck pain Skin/Breast Denies rash Neuro Denies dizziness and Denies headache(s) Endo Denies fatigue and Denies palpitations Physical exam (Primary Care) Vital Signs: Last Vital Signs Pulse 49 L 09/11/24 14:14 BP 112/80 09/11/24 14:14 Pulse Ox 99 09/11/24 14:14 Oxygen Delivery Method Room Air 09/11/24 14:14 BMI result Body Mass Index 24.4 Tobacco/Smoking Status: Tobacco use Status Tobacco use date assessed 09/11/24 09/11/24 14:17 Patient Tobacco Use Status Never used Tobacco 09/11/24 14:17 e-Cigarette/Vaping Use Never Used 09/11/24 14:17 PHQ-9: PHQ-9 Score PHQ-9: Total score 0 09/11/24 14:46 Depression Screening Interpretation: Negative Thrive Assessment: Date of Thrive Assessment Date Thrive assessed 09/11/24 09/11/24 14:17 Currently or been in a relationship where the following occur: No concerns reported Const General: no acute distress and alert HENMT Ears: TM's normal bilaterally and EAC's normal Throat: Yes posterior oropharynx normal and Yes tonsils normal (no TP congestion noted) Neck Neck: Yes supple and No lymphadenopathy Thyroid: Thyroid normal Resp Auscultation: clear to auscultation bilaterally, no rales and no wheezes Cardio Rate: regular rate Rhythm: regular rhythm Heart sounds: Murmur heart sound present systolic early, soft, II/ and at the right sternal border (upper sternal border) GI Palpation (GI): Soft to palpation and nontender Auscultation: normal bowel sounds General: Yes no CVA tenderness Back/Spine/Pelvis Back: no CVA tenderness Skin Rashes: no rashes Extrem General: Yes no clubbing, cyanosis or edema Results Reviewed Results Reviewed: Laboratory Tests 09/07/24 09/07/24 12:13 12:19 WBC 6.2 Hgb 13.6 L Hct 39.4 L Plt Count 172 Sodium 140 Potassium 4.1 Creatinine 1.36 Estimated GFR 52 Fasting Glucose 102 H Hemoglobin A1c % 4.8 Calcium 9.9 AST 27 ALT 34 Triglycerides 81 Cholesterol 111 LDL Cholesterol, Calc 65 HDL Cholesterol 30 L Vitamin B12 1108 H 25-OH Vitamin D Total 45.8 TSH 2.16 Ur Specific [place] 1.015 Urine Protein Negative Urine Glucose (UA) Negative Urine Blood Negative Urine Nitrite Negative Ur Leukocyte Esterase Negative Microalb/Creat Ratio 21.2 Digoxin 0.8 Coding Level of Care Code Est Pt Level 4 (16958) Diagnoses Type 2 diabetes mellitus with diabetic polyneuropathy, with long-term current use of insulin E11.42; Z79.4 Diabetes mellitus jail insulin use: with long term care phlebotomist use Mixed hyperlipidemia E78.2 Stage 3a chronic kidney disease N18.31 Chronic kidney disease stage 3 subtype: stage 3a (GFR 45-59) Chronic congestive heart failure, unspecified heart failure type I50.9 Heart failure type: unspecified Essential hypertension I10 Chronic inflammatory demyelinating polyneuritis G61.81 Hypercalcemia E83.52 Allergic rhinitis, unspecified seasonality, unspecified trigger J30.9 Allergic rhinitis seasonality: unspecified Allergic rhinitis trigger: unspecified 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 Elevated vitamin B12 level R74.8 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 Melanoma location: nose Anxiety F41.9 Additional Codes PHQ-9 - 72646 - PHQ-9 Billing: Yes ([id number]) Assessment & Plan Assessment & Plan (1) Type 2 diabetes mellitus with diabetic polyneuropathy: Code(s): E11.42 - Type 2 diabetes mellitus with diabetic polyneuropathy Category: Medical Qualifiers: Diabetes mellitus jail insulin use: with long term care phlebotomist use Qualified Code(s): E11.42 - Type 2 diabetes mellitus with diabetic polyneuropathy; Z79.4 - 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 (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) use of insulin Plan: His HgbA1c remains normal at 4.8% on his labs done last week (was previously at 4.7% a few months ago) - goal is <7.0% Reinforced diabetic diet Continue Toujeo Solostar pen 12 units once a day, NovoLog FlexPen at 3-4 units 3 times a day with meals per sliding scale and Januvia 100 mg QD We tried cutting his Januvia in half to 50 mg QD previously because his HgbA1c has been consistently low BUT he went back to 100 mg QD when his blood sugar readings started going up shortly afterwards He was seeing endocrinology in the past but his prescribing shoe cementer (Kim Pena) left the practice and he is now just seeing us for his diabetes management (2) Mixed hyperlipidemia: Code(s): E78.2 - Mixed hyperlipidemia Category: Medical Plan: Results of his labs done a few days ago reviewed and discussed with patient Reinforced low cholesterol diet Continue Fenofibrate 145 mg QD Will recheck his labs and fasting lipids in 4 months for follow-up (3) Chronic kidney disease, stage 3: Code(s): N18.30 - Chronic kidney disease, stage 3 unspecified Category: Medical Qualifiers: Chronic kidney disease stage 3 subtype: stage 3a (GFR 45-59) Qualified Code(s): N18.31 - Chronic kidney disease, stage 3a Plan: His renal function has been stable for a while now, confirmed on his recent labs Will continue to monitor GFR and renal function regularly (4) Chronic congestive heart failure: Code(s): I50.9 - Heart failure, unspecified Category: Medical Qualifiers: Heart failure type: unspecified Qualified Code(s): I50.9 - Heart failure, unspecified Plan: Compensated/asymptomatic - reinforced fluid restriction His echocardiogram last done in May 2019 showed normal LV systolic function and visually estimated EF was between 60-65%; basal and mid inferior segments are hypokinetic with mild thickening of the aortic valve but no noted. Diastolic dysfunction is also normal for age Continue Digoxin 125 mcg QD and Carvedilol 12.5 mg BID (5) Essential hypertension: Code(s): I10 - Essential (primary) hypertension Category: Medical Plan: Reinforced low sodium diet - goal is systolic BP of at least 130 to 140 mm or less Continue Losartan 100 mg QD, Amlodipine 10 mg QD and Hydrochlorothiazide 25 mg 2 tablets QD Patient also takes Potassium Chloride ER tablets 20 mEq once a day for potassium supplementation as he is on diuretics (6) Chronic inflammatory demyelinating polyneuritis: Code(s): G61.81 - Chronic inflammatory demyelinating polyneuritis Category: Medical Plan: EMG and NCV done a couple of years ago showed (+) severe sensory and motor chronic peripheral neuropathy affecting the legs - 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 Continue Prednisone 1 mg QD Follow-up with Neurology as scheduled - states that he just sees neurology once a year now (7) Hypercalcemia: Code(s): E83.52 - Hypercalcemia Category: Medical Plan: His serum calcium level was normal at 9.9 on his labs done a few days ago - was previously up at 10.0 a few months ago Follow up with endocrinology as scheduled (8) Allergic rhinitis: Code(s): J30.9 - Allergic rhinitis, unspecified Category: Medical Qualifiers: Allergic rhinitis seasonality: unspecified Allergic rhinitis trigger: unspecified Qualified Code(s): J30.9 - Allergic rhinitis, unspecified Plan: Continue Fluticasone propionate nasal spray QD PRN (9) 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 Category: Medical Plan: Continue Folic acid 1 mg QD - was started by one of his other doctors a couple of years ago as he was told that his homocysteine level came back very high Homocysteine level was elevated at 25.6 when rechecked last year (10) Elevated vitamin B12 level: Code(s): R74.8 - Abnormal levels of other serum enzymes Category: Medical Plan: He is advised that his B12 level remains elevated on his recent labs He is currently not taking Vitamin B12 1000 mcg; we did advise him previously to cut this back to just a couple of times a week but he ended up stopping it completely Will recheck his Vitamin B12 level in 4 months for follow up (11) Melanoma: Code(s): C43.9 - Malignant melanoma of skin, unspecified Category: Medical Qualifiers: Melanoma location: nose Qualified Code(s): C43.31 - Malignant melanoma of nose Plan: S/P Moh's excision surgery a few months ago - his facial and nasal wounds currently appear well-healed with only minimal scarring noted He continues to follow up with dermatology regularly for continuing surveillance (12) Anxiety: Code(s): F41.9 - Anxiety disorder, unspecified Category: Medical Plan: Continue Clonazepam 0.5 mg BID PRN Plan Follow up in 4 months Orders: Orders Complete Blood Count Auto Diff 4 Months D64.9 - Anemia, unspecified Microalbumin, Random (w Creat) 4 Months E11.9 - Type 2 diabetes mellitus without complications Vitamin D 25-OH Total 4 Months E55.9 - Vitamin D deficiency, unspecified Hemoglobin A1c 4 Months E11.9 - Type 2 diabetes mellitus without complications Comprehensive [place]. Panel Fast 4 Months E78.00 - Pure hypercholesterolemia, unspecified Lipid Panel 4 Months E78.00 - Pure hypercholesterolemia, unspecified TSH reflex Free T4 4 Months E78.00 - Pure hypercholesterolemia, unspecified UA CC w/rflx Micro + Cult 4 Months R30.0 - Dysuria
[2024-09-11 14:14] VITALS: BP 112/80; PULSE 49; O2SAT 99; BMI 24.4
== END 2024-09-11 15:06 | disposition home or self-care (01) ==
LOC: HO.HMCH 14:11
PROVIDERS: PCP Internal Medicine; Visit Provider Internal Medicine
DX: E11.42 Type 2 diabetes mellitus with diabetic polyneuropathy (principal); I13.10 Hypertensive heart and chronic kidney disease without heart failure, with stage 1 through stage 4 chronic kidney disease, or unspecified chronic kidney disease; N18.31 Chronic kidney disease, stage 3a; I50.9 Heart failure, unspecified; Z79.4 Long term (current) use of insulin; G61.81 Chronic inflammatory demyelinating polyneuritis; E72.11 Homocystinuria; C43.31 Malignant melanoma of nose; E83.52 Hypercalcemia; E78.2 Mixed hyperlipidemia; J30.9 Allergic rhinitis, unspecified; R74.8 Abnormal levels of other serum enzymes

== ENCOUNTER → 2024-09-11 14:10 | Outpatient (BNVA) | payer MEDICARE, SELFPAY | PROVIDERS: PCP Internal Medicine; Visit Provider Internal Medicine | DX: E11.22 Type 2 diabetes mellitus with diabetic chronic kidney disease (principal); E11.42 Type 2 diabetes mellitus with diabetic polyneuropathy; I13.0 Hypertensive heart and chronic kidney disease with heart failure and stage 1 through stage 4 chronic kidney disease, or unspecified chronic kidney disease; I50.9 Heart failure, unspecified; N18.31 Chronic kidney disease, stage 3a; E78.2 Mixed hyperlipidemia; G61.81 Chronic inflammatory demyelinating polyneuritis; E83.52 Hypercalcemia; J30.9 Allergic rhinitis, unspecified; E72.11 Homocystinuria; R74.8 Abnormal levels of other serum enzymes; C43.31 Malignant melanoma of nose; Z79.4 Long term (current) use of insulin | CPT/HCPCS: 96127; 99212 ==

== ENCOUNTER 2025-01-09 11:53 | Outpatient (REF) | payer MEDICARE, SELFPAY ==
[2025-01-09 12:07] LABS: MANUAL DIFF FLAG NO
[2025-01-09 12:55] LABS: Hematocrit 37.2 % (42.0-52.0); Hemoglobin 12.9 g/dl (14.0-18.0); Imm Gran Abs Auto 0.11 X10*3/uL (0.00-0.03); Imm Gran Pct Auto 1.7 % (0.0-0.4); Lymphocytes Absolute Auto 1.2 X10*3/uL (1.2-4.9); Mean Corpuscular HGB Conc 34.7 g/dl (31.0-36.0); Mean Corpuscular Hemoglobin 30.9 pg (27.0-33.0); Mean Corpuscular Volume 89.2 fL (80.0-98.0); NRBC Abs Auto 0.000 X10*3/uL (0.0-0.012); NRBC Pct Auto 0.0 /100WBC (0.0-0.2); Platelet Count 174 X10*3/uL (160-400); Red Blood Count 4.17 X10*6/uL (4.60-5.80); White Blood Count 6.6 X10*3/uL (4.8-10.8)
[2025-01-09 13:00] LABS: Hemoglobin A1C 100.5791 umol/L; Total Hemoglobin (HGBA1C) 3389.4546 umol/L
[2025-01-09 13:07] LABS: Appearance Urine Clear; Glucose Urine UA Negative (Negative); PH 6.5 (5.0-9.0); Specific Gravity - Urine 1.010 (1.005-1.025)
[2025-01-09 14:05] LABS: Microalbum/Creatinine Ratio Ur 19.4 ug/mg cr (<30)
[2025-01-09 14:15] LABS: Alanine Aminotransferase 32 U/L (0-40); Albumin Level 4.8 g/dL (3.5-5.0); Alkaline Phosphatase 48 U/L (39-117); Anion Gap 13 (12-20); Aspartate Amino Transferase 26 U/L (5-37); Blood Urea Nitrogen 53 mg/dL (9-16); Calcium 9.7 mg/dL (8.4-10.2); Carbon Dioxide 26 mmol/L (22-29); Chloride 106 mmol/L (96-108); Cholesterol 100 mg/dL (<200); Estimated Glomerular Filt Rate 50; HDL Cholesterol 31 mg/dL (>40); Potassium 4.1 mmol/L (3.3-5.1); Sodium 141 mmol/L (135-145); Total Protein 7.1 g/dL (6.5-8.0); Triglycerides 50 mg/dL (<150)
== END 2025-01-09 11:54 | disposition home or self-care (01) ==
LOC: HO.LAB 11:53
PROVIDERS: Visit Provider Internal Medicine
DX: E11.9 Type 2 diabetes mellitus without complications (principal); E55.9 Vitamin D deficiency, unspecified; E78.00 Pure hypercholesterolemia, unspecified; D64.9 Anemia, unspecified; R30.0 Dysuria
CPT/HCPCS: 36415; 80053; 80061; 81003; 82043; 82306; 82570; 83036; 84443; 85025

== ENCOUNTER 2025-01-16 14:00 | Outpatient (AMB) | payer MEDICARE, SELFPAY ==
[2025-01-16 14:20] VITALS: BP 116/54; PULSE 60; RESP 18; O2SAT 98; BMI 25.1
--- NOTE | 2025-01-16 14:20 | MHC.PC.OV ---
Vital Signs 01/16/25 14:20 Height 5 ft 8 in Weight 165 lb BMI 25.1 BP 116/54 L Blood Pressure Location Lt brachial Position Sitting Respiration 18 Pulse 60 Pulse Source Pulse Oximeter Temp Source Temporal Artery Scan Pulse Oximetry (%) 98 Oxygen Delivery Method Room Air Intake Visit Reasons: [facility] cataract RT 02/28 Software Quality Manager Required: No Accompanied by: Self / Same As Patient Allergies atenolol (ATENOLOL) Allergy (Severe, Verified 01/16/25 14:51) ANAPHYLAXIS, anaphya=laxis pollen Allergy (Unknown, Uncoded 01/16/25 14:51) rhinitis Medication List - Last Reconciled 01/16/25 by Max Alonso MD amlodipine 10 mg PO DAILY 30 days atorvastatin 10 mg PO BEDTIME 30 days blood sugar diagnostic (FreeStyle Precision Marcelo Strips) As directed carvedilol 12.5 mg PO BID clonazepam 0.5 mg (1/2 x 1 mg) PO BID 30 days digoxin 125 mcg PO DAILY diosmin complex no.1 (Vasculera) 1 tab PO DAILY emollient combination no.43 (Promiseb topical cream) appl topical fenofibrate nanocrystallized 145 mg PO DAILY flash glucose scanning reader As directed flash glucose sensor (LivestageStCXOWARE Sherice 14 Day Sensor kit) As directed fluticasone propionate 50 mcg/actuation 1 spray intranasal DAILY PRN hydrochlorothiazide 50 mg (2 x 25 mg) PO DAILY insulin aspart U-100 (Novolog FlexPen U-100 Insulin aspart) 3 - 4 units (0.03 - 0.04 mL) subcut TID lancets As directed losartan 100 mg PO DAILY pen needle, diabetic (BD Alba 2nd Gen Pen Needle) 1 ea miscellaneous QID potassium chloride ER 20 mEq PO DAILY prednisone 1 mg PO DAILY sitagliptin phosphate (Januvia) 100 mg PO DAILY Toujeo Max U-300 SoloStar (insulin glargine U-300 conc) 18 units (0.06 mL) subcut BEDTIME NS Tobacco use date assessed: 01/16/25 Fall risk assessment: No Falls in past year Last assessed Fall Risk: 01/16/25 Dental Screening Dental Screen Date: 01/16/25 Did you have a dental visit in the last 12 months?: Yes Did you have a dental problem in the last 6 months where you did not have access to dental care?: No Was dental information given to patient?: Patient has dentist HPI [facility] cataract RT 02/28 HPI Details Patient comes in today at the request of Dr. Yeison Arias for a preoperative medical examination for clearance for surgery He is scheduled for cataract extraction/phacoemusification with IOL of the right eye under MAC on 02/28/2025 Patient states that he currently feels well He denies any headaches or dizziness Denies any chest pains, no SOB No nausea/vomiting, no abdominal pain No change in bowel habits noted He had his follow up labs done last week - to discuss his results [facility] Medical History Anxiety Overweight (BMI 25.0-29.9) Allergic rhinitis Hypercalcemia Neuropathy Mixed hyperlipidemia Benign essential hypertension Chronic congestive heart failure Chronic inflammatory demyelinating polyneuritis GERD (gastroesophageal reflux disease) RLS (restless legs syndrome) CHF (congestive heart failure) Chronic kidney disease, stage 3 Type 2 diabetes mellitus with diabetic polyneuropathy Essential hypertension Hypertriglyceridemia Type 2 diabetes mellitus with chronic kidney disease Surgical History Status post Mohs surgery History of plastic surgery History of nasal surgery History of bronchoscopy Hx of removal of cyst Hx of cardiac catheterization Hx of hand surgery Hx of bilateral inguinal hernia repair Hx of tonsillectomy Family History Father Smoker Diabetes Hypertension Mother Smoker Asthma Emphysema, unspecified Social History Household Members Other:: Sister Housing: House Alcohol intake: never Patient Tobacco Use Status: Never used Tobacco e-Cigarette/Vaping Use: Never Used Second Hand Smoke Exposure: Yes service: No Current occupational status: retired Cognitive needs: No Hearing needs: No Vision needs: Yes Questionnaire PHQ-9 Over the last 2 weeks, how often have you been bothered by any of the following problems? 1. Little interest or pleasure in doing things: not at all 2. Feeling down, depressed, or hopeless: not at all 3. Trouble falling or staying asleep, or sleeping too much: not at all 4. Feeling tired or having little energy: not at all 5. Poor appetite or overeating: not at all 6. Feeling bad about yourself - or that you are a failure or have let yourself or your family down: not at all 7. Trouble concentrating on things, such as reading the newspaper or watching television: not at all 8. Moving or speaking so slowly that other people could have noticed. Or the opposite - being so fidgety or restless that you have been moving around a lot more than usual: not at all 9. Thoughts that you would be better off or of hurting yourself in some way: not at all Total score: 0 Depression Screening Interpretation: Negative Depression Screening Done: Yes 17608 - PHQ-9 Billing: Yes Source: Developed by Drs. Hans Correa, Carley Davalos, Leonel Jackson and colleagues, with an educational reynold from [employer]. Thrive Questionnaire Date Thrive assessed: 01/16/25 I am a: Patient What is your living situation today?: I have a steady place to live Within the past 12 months, did the food you bought not last and you didn't have the money to get more?: Never true Within the past 12 months, did you worry whether your food would run out before you got money to buy more?: Never true Do you have trouble paying for medicines?: No Do you have trouble getting transportation to medical appointments?: No Do you have trouble paying your heating and electricity bill?: No Do you have trouble taking care of your child, family member or friend?: No Do you have trouble with day-to-day activities such as bathing, preparing meals, shopping, managing finances, etc.?: No Are you currently unemployed and looking for a job?: No Are you interested in more education?: No Please select the resources that you would like help with: None Currently or been in a relationship where the following occur: No concerns reported THRIVE Score: 0 AUDIT C Alcohol Use Questionnaire (AUDIT-C) 1. How often do you have a drink containing alcohol?: Never 3. How often do you have six or more drinks on one occasion?: Never Total Score: 0 Score Reviewed/Action Taken: Yes EDILIA-7 AMB Questionnaire EDILIA-7 Date EDILIA - 7 assessed: 01/16/25 Feeling nervous, anxious, or on edge: 0 = Not at all Not being able to stop or control worryin = Not at all Worrying too much about different things: 0 = Not at all Trouble relaxin = Not at all Being so restless that it is hard to sit still: 0 = Not at all Becoming easily annoyed or irritable: 0 = Not at all Feeling afraid as if something awful might happen: 0 = Not at all Total EDILIA-7 score (0-4 normal; 5-9 mild; 10-14 moderate; 15-21 severe): 0 Source: Developed by Drs. Hans Correa, Carley Davalos, Leonel Jackson and colleagues, with an educational reynold from [employer]. Review of Systems Const Denies chills, Denies fatigue, Denies fever(s) and Denies headache(s) ENT Denies dysphagia, Denies dizziness, Denies otalgia, Denies headache(s), Denies neck pain, Denies odynophagia and Denies sore throat Card Denies chest pain, Denies palpitations and Denies dyspnea Resp Denies chest congestion, Denies cough and Denies dyspnea GI Denies abdominal pain, Denies constipation, Denies dysphagia, Denies heartburn, Denies diarrhea, Denies nausea, Denies odynophagia and Denies vomiting Denies difficulty urinating, Denies dysuria, Denies nocturia and Denies urinary frequency Musc Denies back pain, Denies arthralgias and Denies neck pain Skin/Breast Denies rash Neuro Denies dizziness and Denies headache(s) Endo Denies fatigue and Denies palpitations Physical exam (Primary Care) Vital Signs: Last Vital Signs Pulse 60 01/16/25 14:20 Resp 18 01/16/25 14:20 BP 116/54 L 01/16/25 14:20 Pulse Ox 98 01/16/25 14:20 Oxygen Delivery Method Room Air 01/16/25 14:20 BMI result Body Mass Index 25.1 Tobacco/Smoking Status: Tobacco use Status Tobacco use date assessed 01/16/25 01/16/25 14:28 Patient Tobacco Use Status Never used Tobacco 01/16/25 14:28 e-Cigarette/Vaping Use Never Used 01/16/25 14:28 PHQ-9: PHQ-9 Score PHQ-9: Total score 0 01/16/25 14:28 Depression Screening Interpretation: Negative Thrive Assessment: Date of Thrive Assessment Date Thrive assessed 01/16/25 01/16/25 14:28 Currently or been in a relationship where the following occur: No concerns reported Const General: no acute distress and alert HENMT Throat: Yes posterior oropharynx normal and Yes tonsils normal (no TP congestion noted) Neck Neck: Yes supple and No lymphadenopathy Thyroid: Thyroid normal Resp Auscultation: clear to auscultation bilaterally, no rales and no wheezes Cardio Rate: regular rate Rhythm: regular rhythm Heart sounds: Murmur heart sound present systolic early, soft, II/ and at the right sternal border (upper sternal border) GI Palpation (GI): Soft to palpation and nontender Auscultation: normal bowel sounds General: Yes no CVA tenderness Back/Spine/Pelvis Back: no CVA tenderness Skin Rashes: no rashes Extrem General: Yes no clubbing, cyanosis or edema Results Reviewed Results Reviewed: Laboratory Tests 01/09/25 01/09/25 12:05 12:06 WBC 6.6 Hgb 12.9 L Hct 37.2 L Plt Count 174 Sodium 141 Potassium 4.1 Creatinine 1.40 Estimated GFR 50 Fasting Glucose 78 Hemoglobin A1c % 4.9 Calcium 9.7 AST 26 ALT 32 Triglycerides 50 Cholesterol 100 LDL Cholesterol, Calc 59 HDL Cholesterol 31 L 25-OH Vitamin D Total 57.4 TSH 2.22 Ur Specific [place] 1.010 Urine Protein Negative Urine Glucose (UA) Negative Urine Blood Negative Urine Nitrite Negative Ur Leukocyte Esterase Negative Microalb/Creat Ratio 19.4 Coding Level of Care Code Est Pt Level 4 (46038) Diagnoses Preoperative examination Z01.818 Cataract of right eye, unspecified cataract type H26.9 Cataract type: unspecified Type 2 diabetes mellitus with diabetic polyneuropathy, with long-term current use of insulin E11.42; Z79.4 Diabetes mellitus custodial insulin use: with salvage determiner use Mixed hyperlipidemia E78.2 Stage 3a chronic kidney disease N18.31 Chronic kidney disease stage 3 subtype: stage 3a (GFR 45-59) Chronic congestive heart failure, unspecified heart failure type I50.9 Heart failure type: unspecified Essential hypertension I10 Chronic inflammatory demyelinating polyneuritis G61.81 Hypercalcemia E83.52 Allergic rhinitis, unspecified seasonality, unspecified trigger J30.9 Allergic rhinitis trigger: unspecified Allergic rhinitis seasonality: unspecified 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 Elevated vitamin B12 level R74.8 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 Melanoma location: nose Anxiety F41.9 Additional Codes PHQ-9 - 10310 - PHQ-9 Billing: Yes ([id number]) Assessment & Plan Assessment & Plan (1) Preoperative examination: Code(s): Z01.818 - Encounter for other preprocedural examination Category: Medical Plan: Patient presents with acceptable risks for planned low cardiac risk procedure Results of his labs done last week reviewed and discussed with patient (2) Cataract, right eye: Code(s): H26.9 - Unspecified cataract Category: Medical Qualifiers: Cataract type: unspecified Qualified Code(s): H26.9 - Unspecified cataract Plan: He is scheduled for cataract extraction/phacoemusification with IOL of the right eye under MAC on 02/28/[address] Yeison Arias (3) Type 2 diabetes mellitus with diabetic polyneuropathy: Code(s): E11.42 - Type 2 diabetes mellitus with diabetic polyneuropathy Category: Medical Qualifiers: Diabetes mellitus custodial insulin use: with custodial use Qualified Code(s): E11.42 - Type 2 diabetes mellitus with diabetic polyneuropathy; Z79.4 - prison (current) use of insulin Plan: His HgbA1c remains normal at 4.9% on his labs done last week (was previously at 4.8% a few months ago) - goal is <7.0% Reinforced diabetic diet Continue Toujeo Solostar pen 12 units once a day, NovoLog FlexPen at 3-4 units 3 times a day with meals per sliding scale and Januvia 100 mg QD We tried cutting his Januvia in half to 50 mg QD previously because his HgbA1c has been consistently low BUT he went back to 100 mg QD when his blood sugar readings started going up shortly afterwards He was seeing endocrinology in the past but his prescribing oil pumper (Kim Pena) left the practice and he has been just seeing us for his diabetes management as his diabetes has been well-controlled for several years now Patient continues to monitor and track his blood sugar readings regularly (has a CGM) to help keep his diabetes under control (4) Mixed hyperlipidemia: Code(s): E78.2 - Mixed hyperlipidemia Category: Medical Plan: He is advised that his cholesterol levels remain well-controlled on his recent labs Reinforced low cholesterol diet Continue Fenofibrate 145 mg QD Will recheck his labs and fasting lipids in 4 months for follow-up (5) Chronic kidney disease, stage 3: Code(s): N18.30 - Chronic kidney disease, stage 3 unspecified Category: Medical Qualifiers: Chronic kidney disease stage 3 subtype: stage 3a (GFR 45-59) Qualified Code(s): N18.31 - Chronic kidney disease, stage 3a Plan: His renal function has remained stable for a few years now Will continue to monitor GFR and renal function regularly (6) Chronic congestive heart failure: Code(s): I50.9 - Heart failure, unspecified Category: Medical Qualifiers: Heart failure type: unspecified Qualified Code(s): I50.9 - Heart failure, unspecified Plan: Compensated; patient has been asymptomatic from a cardiac standpoint - reinforced fluid restriction His echocardiogram last done in May 2019 showed normal LV systolic function and visually estimated EF was between 60-65%; basal and mid inferior segments are hypokinetic with mild thickening of the aortic valve but no noted. Diastolic dysfunction is also normal for age Continue Digoxin 125 mcg QD and Carvedilol 12.5 mg BID Will recheck his serum digoxin level in a few months for follow up (7) Essential hypertension: Code(s): I10 - Essential (primary) hypertension Category: Medical Plan: Reinforced low sodium diet - goal is systolic BP of at least 130 to 140 mm or less Continue Losartan 100 mg QD, Amlodipine 10 mg QD and Hydrochlorothiazide 25 mg 2 tablets QD Patient also takes Potassium Chloride ER tablets 20 mEq once a day for potassium supplementation as he is on diuretics (8) Chronic inflammatory demyelinating polyneuritis: Code(s): G61.81 - Chronic inflammatory demyelinating polyneuritis Category: Medical Plan: EMG and NCV done a few years ago revealed (+) severe sensory and motor chronic peripheral neuropathy affecting the legs - 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 at the time Continue Prednisone 1 mg QD Follow-up with Neurology as scheduled - states that he just sees neurology once a year now (9) Hypercalcemia: Code(s): E83.52 - Hypercalcemia Category: Medical Plan: His serum calcium level was normal at 9.7 on his labs done last week - it previously went up to as high as 10.6 last year Will continue to monitor her serum calcium level regularly Follow up with endocrinology as scheduled (10) Allergic rhinitis: Code(s): J30.9 - Allergic rhinitis, unspecified Category: Medical Qualifiers: Allergic rhinitis trigger: unspecified Allergic rhinitis seasonality: unspecified Qualified Code(s): J30.9 - Allergic rhinitis, unspecified Plan: Continue Fluticasone propionate nasal spray QD PRN (11) 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 Category: Medical Plan: Continue Folic acid 1 mg QD - was started by one of his other doctors a couple of years ago as he was told that his homocysteine level came back very high Homocysteine level was elevated at 25.6 when rechecked last year (12) Elevated vitamin B12 level: Code(s): R74.8 - Abnormal levels of other serum enzymes Category: Medical Plan: He is advised that his B12 level remains elevated on his recent labs He is currently not taking Vitamin B12 1000 mcg; we did advise him previously to cut this back to just a couple of times a week but he ended up stopping it completely Will recheck his Vitamin B12 level in 4 months for follow up (13) Melanoma: Code(s): C43.9 - Malignant melanoma of skin, unspecified Category: Medical Qualifiers: Melanoma location: nose Qualified Code(s): C43.31 - Malignant melanoma of nose Plan: S/P Moh's excision surgery a few months ago - his facial and nasal wounds currently appear well-healed with only minimal scarring noted He continues to follow up with dermatology regularly for continuing surveillance (14) Anxiety: Code(s): F41.9 - Anxiety disorder, unspecified Category: Medical Plan: Continue Clonazepam 0.5 mg BID PRN Plan Patient is currently medically optimized and does not appear to have any contraindications to undergo cataract surgery of the right eye as planned on 02/28/2025 Follow up in 4 months Orders: Orders Complete Blood Count Auto Diff 4 Months D64.9 - Anemia, unspecified Lipid Panel 4 Months E78.00 - Pure hypercholesterolemia, unspecified Vitamin B12 and Folate 4 Months E53.8 - Deficiency of other specified B group vitamins Digoxin 4 Months I50.20 - Unspecified systolic (congestive) heart failure Comprehensive [place]. Panel Fast 4 Months E78.00 - Pure hypercholesterolemia, unspecified Hemoglobin A1c 4 Months E11.9 - Type 2 diabetes mellitus without complications Microalbumin, Random (w Creat) 4 Months E11.9 - Type 2 diabetes mellitus without complications TSH reflex Free T4 4 Months E78.00 - Pure hypercholesterolemia, unspecified UA CC w/rflx Micro + Cult 4 Months R30.0 - Dysuria Vitamin D 25-OH Total 4 Months E55.9 - Vitamin D deficiency, unspecified
== END 2025-01-16 15:23 | disposition home or self-care (01) ==
LOC: HO.HMCH 14:01
PROVIDERS: PCP Internal Medicine; Visit Provider Internal Medicine
DX: I12.9 Hypertensive chronic kidney disease with stage 1 through stage 4 chronic kidney disease, or unspecified chronic kidney disease (principal); E11.42 Type 2 diabetes mellitus with diabetic polyneuropathy; Z79.4 Long term (current) use of insulin; N18.31 Chronic kidney disease, stage 3a; I50.9 Heart failure, unspecified; G61.81 Chronic inflammatory demyelinating polyneuritis; C43.31 Malignant melanoma of nose; Z01.818 Encounter for other preprocedural examination; H26.9 Unspecified cataract; E78.2 Mixed hyperlipidemia; E83.52 Hypercalcemia

== ENCOUNTER → 2025-01-16 14:00 | Outpatient (BNVA) | payer MEDICARE, SELFPAY | PROVIDERS: PCP Internal Medicine; Visit Provider Internal Medicine | DX: Z01.818 Encounter for other preprocedural examination (principal); H26.9 Unspecified cataract; E11.42 Type 2 diabetes mellitus with diabetic polyneuropathy; E78.2 Mixed hyperlipidemia; I13.0 Hypertensive heart and chronic kidney disease with heart failure and stage 1 through stage 4 chronic kidney disease, or unspecified chronic kidney disease; E11.22 Type 2 diabetes mellitus with diabetic chronic kidney disease; N18.31 Chronic kidney disease, stage 3a; I50.9 Heart failure, unspecified; G61.81 Chronic inflammatory demyelinating polyneuritis; E83.52 Hypercalcemia; Z79.4 Long term (current) use of insulin | CPT/HCPCS: 96127; 99212 ==